=== PATIENT | female | born 1955 | race Caucasian/White ===

== ENCOUNTER → 2017-06-18 14:15 | Outpatient (CLI) | payer BC, SELFPAY ==
[2017-06-18 16:28] LABS: Free T3 3.1 pg/mL (2.18-3.98); T4 Free Direct 1.38 ng/dL (0.76-1.46); Thyroid Stim Hormone (TSH) 1.87 uIU/mL (0.358-3.74)
[2017-06-22 16:10] LABS: Thyroid Peroxidase AB 64 IU/mL (0-34)
== END ==
PROVIDERS: PCP Internal Medicine; Visit Provider Physician Assistant
DX: E06.9 Thyroiditis, unspecified (principal)
CPT/HCPCS: 36415; 84439; 84443; 84481; 86376; 86800

== ENCOUNTER → 2017-06-22 14:55 | Outpatient (CLI) | payer BC, SELFPAY ==
--- NOTE | 2017-06-22 14:57 | US_ITS ---
STUDY: THYROID ULTRASOUND REASON FOR EXAM: Female, 61 years old. THYROIDITIS FROM IMMUNE THERAPY FROM MELANOMA TECHNIQUE: Ultrasound evaluation of the thyroid was performed with real-time and static mohan-scale imaging. COMPARISON: 02.03.17 FINDINGS: RIGHT LOBE: The right lobe of the thyroid gland measures 5.1x2.6x2.4 cm. There is a heterogeneous echotexture. 3 x 3 x 3 mm solid nodule in the mid gland. The lesion is solid with regular margins and alexander nodular doppler flow. LEFT LOBE: absent. ISTHMUS: The isthmus measures 5 mm . Along the right side of the neck there is a lymph node measuring 14 X 6 X 4 MM. US/Thyroid IMPRESSION: Left thyroidectomy changes. Stable right 3mm nodule. Electronically Signed: Kenneth Gunter MD at 16:36 EDT , Service support ,
== END ==
PROVIDERS: Family Provider Internal Medicine; PCP Internal Medicine; Visit Provider Surgery
DX: E06.0 Acute thyroiditis (principal)
CPT/HCPCS: 76536

== ENCOUNTER 2017-10-30 18:24 | Emergency (ER) | payer BC, SELFPAY ==
[2017-10-30 18:25] VITALS: BP 122/53; PULSE 82; RESP 18; TEMP 36.6; O2SAT 97; BMI 23.8
--- NOTE | 2017-10-30 20:22 | EKG12_ITS ---
Test Reason : BACK Blood Pressure : / mmHG Vent. Rate : 073 BPM Atrial Rate : 073 BPM P-R Int : 150 ms QRS Dur : 076 ms QT Int : 388 ms P-R-T Axes : 024 -05 035 degrees QTc Int : 427 ms Normal sinus rhythm Normal ECG Confirmed by GYPSY DEL RIO ([id number]), fan mail editor USMAN URIAS ([id number]) on 11/03/2017 1:37:59 PM Referred By: MIA Confirmed By:GYPSY DEL RIO
--- NOTE | 2017-10-30 20:50 | RAD_ITS ---
STUDY: X-RAY CHEST REASON FOR EXAM: Female, 61 years old. Right apical chest pain. TECHNIQUE: 2 views COMPARISON: Prior chest radiograph of February 12, 2017 FINDINGS: The lungs are clear and expanded. There is no demonstrated pleural abnormality. Normal size heart. Normal mediastinum and sheri. Normal visualized pulmonary arteries. Normal visualized aortic arch and descending thoracic aorta. Normal visualized thoracic spine. Normal visualized ribs, clavicles, and shoulders. There is no demonstrated abnormality of the visualized soft tissue structures of the upper abdomen. RAD/Chest PA and Lateral IMPRESSION: Normal x-ray examination of the chest. Electronically Signed: Susy Farley MD at 21:32 EDT , Service support ,
--- NOTE | 2017-10-30 21:33 | ED.VISSUMM ---
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 Patient's been doing well. Today she was at work around 2:30 in the afternoon of some right upper shoulder discomfort that she thought was secondary to muscle ache. Said she rubbed it started feeling a little better than she got discomfort on her right lateral flank. She denies other symptoms. She has chronic intermittent diarrhea from her colostomy. She denies any fever or chills. She denies any shortness of breath. She denies any chest pain or cough. There is no pleuritic nature of the pain. She has had no hemoptysis. She has had no leg pain or swelling. She has never had a DVT or PE. She has no known cardiac history. She has had no recent travel, surgery or mobilization. No recent hospitalization. She denies any dysuria. No fever. No cough. Physical Examination: Well-appearing female. Vital signs are stable afebrile. Pulse ox 97% on room air no hypoxia. Heart rate 82. HEENT exam unremarkable. Neck nontender no lymphadenopathy. Very mild right trapezius tenderness to palpation. There is no ecchymosis or bruising. No redness or warmth. No signs of muscle spasm. Lungs clear all station bilaterally. Heart regular rhythm no murmur. Abdomen soft nontender. She is moving all 4 extremities. Calves are nontender without edema or cords. Neurologically she is awake and alert with no focal motor or sensory deficits. She has equal symmetrical radial and DP pulses. Back exam is nontender. There is no reproducible right flank tenderness or signs of trauma. Right upper quadrant is nontender. There is no Porras's or McBurney's point tenderness. Neurologic exam she is awake and alert moving all 4 extremities. Test Results: Chest x-ray 2 view read by myself shows normal cardiac silhouette and mediastinum. Lungs are unremarkable. No infiltrate. No pneumothorax. EKG is a sinus rhythm rate is 73 with no acute signs of HI or ischemia. Emergency Department Course and Treatment: Repeat exam she is doing well 2129. She has no new symptoms. Her vital signs are stable. Clinically I do not think she needs a larger workup. I do not think this is a PE. I do not think this is cardiac. This is consistent with a myalgia from her immunotherapy. I did discuss this with her oncologist Dr. Phelan from [place]. He will follow her up tomorrow. Treatment Plan: Tylenol and Motrin for pain. Return if feeling worse. Follow-up with her oncologist. Disposition: Discharge Impression: Myalgias secondary to immunotherapy History of mucosal melanoma This note was generated with [employer] dictation software. It may contain incorrect words, spelling, and punctuation that were not noted in review of the chart prior to signing ED Disposition - Plan for ED Patient: Chief Complaint: Back Referrals: Jj Holliday MD [Primary Care Provider] -
--- NOTE | 2017-10-30 21:37 | ED.DCSUM_ITS ---
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 Patient's been doing well. Today she was at work around 2:30 in the afternoon of some right upper shoulder discomfort that she thought was secondary to muscle ache. Said she rubbed it started feeling a little better than she got discomfort on her right lateral flank. She denies other symptoms. She has chronic intermittent diarrhea from her colostomy. She denies any fever or chills. She denies any shortness of breath. She denies any chest pain or cough. There is no pleuritic nature of the pain. She has had no hemoptysis. She has had no leg pain or swelling. She has never had a DVT or PE. She has no known cardiac history. She has had no recent travel, surgery or mobilization. No recent hospitalization. She denies any dysuria. No fever. No cough. Physical Examination: Well-appearing female. Vital signs are stable afebrile. Pulse ox 97% on room air no hypoxia. Heart rate 82. HEENT exam unremarkable. Neck nontender no lymphadenopathy. Very mild right trapezius tenderness to palpation. There is no ecchymosis or bruising. No redness or warmth. No signs of muscle spasm. Lungs clear all station bilaterally. Heart regular rhythm no murmur. Abdomen soft nontender. She is moving all 4 extremities. Calves are nontender without edema or cords. Neurologically she is awake and alert with no focal motor or sensory deficits. She has equal symmetrical radial and DP pulses. Back exam is nontender. There is no reproducible right flank tenderness or signs of trauma. Right upper quadrant is nontender. There is no Porras's or McBurney's point tenderness. Neurologic exam she is awake and alert moving all 4 extremities. Test Results: Chest x-ray 2 view read by myself shows normal cardiac silhouette and mediastinum. Lungs are unremarkable. No infiltrate. No pneumothorax. EKG is a sinus rhythm rate is 73 with no acute signs of SD or ischemia. Emergency Department Course and Treatment: Repeat exam she is doing well 2129. She has no new symptoms. Her vital signs are stable. Clinically I do not think she needs a larger workup. I do not think this is a PE. I do not think this is cardiac. This is consistent with a myalgia from her immunotherapy. I did discuss this with her oncologist Dr. Phelan from [place]. He will follow her up tomorrow. Treatment Plan: Tylenol and Motrin for pain. Return if feeling worse. Follow- up with her oncologist. Disposition: Discharge Impression: Myalgias secondary to immunotherapy History of mucosal melanoma This note was generated with [employer] dictation software. It may contain incorrect words, spelling, and punctuation that were not noted in review of the chart prior to signing ED Disposition - Plan for ED Patient: Chief Complaint: Back Referrals: Jj Holliday MD [Primary Care Provider] -
--- NOTE | 2017-10-30 21:37 | ED.DEP ---
ED Disposition - Plan for ED Patient: Disposition: Home or Assisted Living Chief Complaint: Back Instructions: ED Muscle Aching Additional Instructions: Follow-up with her oncologist tomorrow or Thursday. He said feel free to call him on the phone to let him know how you doing. Motrin and Tylenol for pain. If feeling significantly worse return to ER. Your chest x-ray and EKG tonight were normal.
[2017-10-30 21:44] VITALS: BP 113/70; PULSE 82; RESP 18; O2SAT 98
== END 2017-10-30 21:45 | disposition home or self-care (01) ==
PROVIDERS: Emergency Provider Emergency Medicine; Family Provider Internal Medicine; PCP Internal Medicine
DX: M79.1 Myalgia (principal); R19.7 Diarrhea, unspecified; Z85.820 Personal history of malignant melanoma of skin; Z93.3 Colostomy status
CPT/HCPCS: 71046; 93005; 99283; A4216

== ENCOUNTER 2017-11-01 06:21 | Emergency (ER) | payer BC, SELFPAY ==
[2017-11-01 06:22] VITALS: BP 155/128; PULSE 90; RESP 20; TEMP 36.7; O2SAT 97; BMI 24.7
--- NOTE | 2017-11-01 06:24 | ED.RN ---
rn called for ekg, pulled old ekg's for
--- NOTE | 2017-11-01 06:30 | EKG12_ITS ---
Test Reason : Blood Pressure : / mmHG Vent. Rate : 083 BPM Atrial Rate : 083 BPM P-R Int : 130 ms QRS Dur : 072 ms QT Int : 356 ms P-R-T Axes : 038 -03 038 degrees QTc Int : 418 ms Normal sinus rhythm Normal ECG Confirmed by TOMY DIAZ, JOSE DANIEL ([id number]), news videotape editor USMAN URIAS ([id number]) on 11/03/2017 1:05:08 PM Referred By: ARISTEO Confirmed By:JOSE DANIEL HUITRON MD
--- NOTE | 2017-11-01 06:31 | CT_ITS ---
STUDY: CTA CHEST REASON FOR EXAM: Female, 61 years old. Chest pain. Right rib pain on immunotherapy for rectal cancer. RADIATION DOSAGE (If Supplied By Facility): CTDIvol = ( 12.63 ) mGy, DLP = ( 376.71 ) mGycm TECHNIQUE: The examination was performed with the intravenous administration of 75 ml of Isovue 370 contrast material. Post-processing of the angiographic images was performed, with multiplanar reformation and 3D reconstruction. Individualized dose optimization techniques were used for this CT. COMPARISON: None. FINDINGS: Normal enhancement of the main pulmonary artery and right and left pulmonary arteries. Normal enhancement of the bilateral peripheral pulmonary arteries. There is no demonstrated pulmonary embolism. Normal thoracic aorta and visualized great vessels. There is no demonstrated aortic dissection. Normal heart and pericardium. There is no pericardial effusion. No significant mediastinal lymphadenopathy. There is a small bilateral hilar lymphadenopathy. Normal visualized trachea and bronchi. The lungs are well expanded. There are several small 1 to 10 mm noncalcified scattered lung nodules present bilaterally, consistent with metastatic disease. There is bibasilar atelectasis/infiltrates. There is bilateral pleural thickening with trace right pleural effusion. Normal chest wall structures. There are probably benign bilateral axillary lymph nodes. There are mild degenerative endplate changes of thoracic spine. Mildly increased thoracic kyphosis. Unremarkable visualized upper abdomen. CT/CTA Chest W/WO Contrast IMPRESSION: 1. Normal CTA chest examination, without a demonstrated pulmonary embolism or arterial dissection. 2. Several small scattered noncalcified lung nodules are present bilaterally, consistent with metastatic disease. 3. Bibasilar atelectasis versus infiltrates. 4. Posterior pleural thickening. Trace right pleural effusion. Electronically Signed: Savana Villela MD at 7:54 EDT Tel , Service support ,
[2017-11-01] MEDS: HYDROmorphone 0.5 MG/0.5 ML SYRINGE IV ×2 (06:35→09:44)
[2017-11-01] MEDS: Ondansetron 4 MG/2 ML Vial IV (06:36)
[2017-11-01 06:40] LABS: Absolute Lymphocyte Count 2.37 X10^3/ul (0.83-4.51); Absolute Neutrophil Count 3.6 X10^3/uL (2.0-7.7); Basophil# 0.05 X10^3/uL; Basophil% 0.7 % (0-1); Eosinophil# 0.59 X10^3/uL; Eosinophils% 8.1 % (0-5); Hematocrit 36.4 % (37-47); Hemoglobin 12.1 g/dl (12.0-15.0); Lymphocyte # 2.37 X10^3/ul (4.0); Lymphocyte % 32.4 % (19-41); Mean Corp Hgb Conc 33.2 g/gl (32-36); Mean Corpuscular Hgb 30.5 pg (27.0-32.0); Mean Corpuscular Volume 91.7 fL (81-99); Monocyte# 0.73 X10^3/uL; Neutrophil # 3.56 X10^3/uL (2.7-7.7); Neutrophil % 48.7 % (47-70); Platelet Count 245 K/mm3 (150-450); RBC Distribution Width SD 42.7 fl (35.1-43.9); Red Blood Count 3.97 M/mm3 (4.2-5.4); White Blood Count 7.3 K/mm3 (4.4-11.0)
--- NOTE | 2017-11-01 06:41 | ED.DCSUM_ITS ---
- ER Visit Summary Date of Service: 11/01/17 Chief Complaint: [Right chest pain] History of Present Illness: The patient is a 61 F [patient presents the emergency department with severe right-sided chest pain. It started on Thursday she was seen in the emergency department she had pain that was radiating down her neck into her shoulder and then migrated to her right flank. She was fairly comfortable at that time however the pain has gotten worse and this morning was excruciating. She has severe pain with deep inspiration it helps slightly when she puts pressure on that area it is on her right sixth rib. No fevers chills or shortness of breath. She does have a history of mucosal melanoma status post ostomy. She is on immunotherapy currently. She has not had any additional surgery and takes levothyroxine] Physical Examination: [] Blood pressure 155/128 heart rate 90 respiratory rate 20 pulse ox 97% WN WD moderate distress due to pain PERRL EOMI MMM NECK supple and nontender, no masses RRR no murmur rub or gallop, no peripheral edema, symmetric radial pulses CTAB no respiratory distress there is no reproducible tenderness however patient is guarding her anterior right lower chest ABDOMEN is soft and nontender, normal bowel sounds, no distension, no rebound or guarding SKIN is warm and dry no rashes Alert and Oriented x3, CN II-XII in tact, no motor or sensory deficits, gait normal No lymphadenopathy Test Results: [EKG is sinus at a rate of 83 with no acute ischemic changes screening labs were unremarkable. CTA of the chest is pending. I did speak with the patient she was feeling better after Dilaudid in the emergency department. Her oncologist did request a call back. Patient was signed out to Dr. Vargas pending CTA results and formal disposition.] Emergency Department Course and Treatment: [] Treatment Plan: [] Disposition: [Pending consultation and results] Impression: [Right chest pain] This note was generated with [employer] dictation software. It may contain incorrect words, spelling, and punctuation that were not noted in review of the chart prior to signing ED Disposition - Plan for ED Patient: Disposition: Home or Assisted Living Chief Complaint: Chest Pain Instructions: ED Chest Pain NonCardiac Prescriptions: Oxycodone [Oxyir] 5 mg PO Q6H PRN PRN 3 Days #10 tab PRN Reason: Pain Prednisone 20 mg PO BID #3 tab Additional Instructions: Please keep your appointment with Dr. Phelan. Please return if worsening or concerns.
[2017-11-01 06:42] LABS: POSITIVE COUNT NO; POSITIVE DIFFERENTIAL NO; POSITIVE MORPHOLOGY NO
--- NOTE | 2017-11-01 06:55 | NURSING ---
NO LW OR POA
[2017-11-01 06:57] LABS: ALB/GLOB Ratio 0.9 RATIO (0.9-2.4); AST(SGOT) 17 U/L (15-37); Alanine Aminotransfer ALT/SGPT 20 U/L (13-56); Albumin, Serum 3.6 g/dL (3.2-5.0); Alkaline Phosphatase 79 U/L (45-117); Anion Gap 10 (5-15); BUN 12 mg/dL (7-18); BUN/Creat Ratio 16.3 RATIO (10-20); Calcium,Total 8.8 mg/dL (8.5-10.1); Chloride 106 mmol/L (98-107); Creatinine, Serum 0.74 mg/dL (0.55-1.02); EST Glomerular Filtration Rate 85 mL/min (>60); Est Glom Filt Rate - Afr Amer 103 mL/min (>60); Estimated Creatinine Clearance 71.84 ml/min; Globulin 4.1 g/dL (2.2-4.2); Glucose 90 mg/dL (74-106); Lipase 89 U/L (73-393); Potassium 3.8 mmol/L (3.5-5.1); Protein, Total 7.7 g/dL (6.4-8.2); Sodium Level 143 mmol/L (136-145)
--- NOTE | 2017-11-01 08:05 | CT_ITS ---
STUDY: CT ABDOMEN AND PELVIS WITHOUT CONTRAST REASON FOR EXAM: Female, 61 years old. Right rib and flank pain. History of rectal cancer. RADIATION DOSAGE (If Supplied By Facility): CTDIvol = ( 6.16 ) mGy, DLP = ( 343.72 ) mGycm TECHNIQUE: Transaxial images were obtained from the dome of the diaphragm to the symphysis pubis without oral contrast, and without intravenous contrast. Sagittal and coronal images were reconstructed. Individualized dose optimization techniques were used for this CT. COMPARISON: PET/CT scan: 01/26/2017 FINDINGS: The visualized lung bases shows linear areas of atelectasis/infiltrates with up to 17 mm and smaller nodular densities. Trace right pleural effusion. The visualized portions of the heart are within normal limits. There is decreased attenuation of the liver consistent with mild steatosis. Normal gallbladder and extrahepatic biliary system. Normal spleen. Normal pancreas. There is bulbous configuration of the pancreas at the body and tail junction. Normal bilateral adrenal glands. Normal right kidney. Normal left kidney. Duplex left renal collecting system. Normal visualized stomach. Normal small intestine. Patient might have undergone abdominal perineal resection(APR) for rectal cancer. There is proctocolectomy with a colostomy opening in the left lower quadrant. Moderate amount of retained fecal debris is seen in the ascending, transverse and residual portion of the descending colon. There is non-visualization of the appendix. There is moderate atherosclerotic calcification of the abdominal aorta and origin of the left renal artery, without a demonstrated aneurysm. Normal inferior vena cava. Normal retroperitoneum. Multiple small centimeter/subcentimeter lymph nodes are seen mostly in the root of the small bowel mesentery. Normal urinary bladder. There is absence of the uterus consistent with a prior hysterectomy. There is posteriorly in the left adnexal region a 6.9 x 4.2 cm conglomerated pelvic lymphadenopathy demonstrated. No lytic or blastic bony destructive abnormality demonstrated. There is lumbosacral mild/moderate degenerative facet arthrosis. CT/Abdomen/Pelvis without Cont IMPRESSION: 1. Bibasilar atelectasis/infiltrates. Multiple bilateral pulmonary nodules. Trace right pleural effusion. 2. Possible prior proctocolectomy with a colostomy in the left lower abdominal quadrant. Moderately increased colonic stool volume. 3. A 6.9 x 4.2 cm left pelvic lymphadenopathy, likely metastatic. Electronically Signed: Savana Villela MD at 9:10 EDT Tel , Service support ,
[2017-11-01 08:21] VITALS: BP 109/58; PULSE 73; RESP 18; O2SAT 100
--- NOTE | 2017-11-01 09:33 | ED.DCSUM_ITS ---
- ER Visit Summary Date of Service: 11/01/17 Chief Complaint: Chest and back pain History of Present Illness: The patient is a 61 F who was initially assessed by Dr. Devine. Patient was seen in the emergency department on 10/30 and again early this morning. Currently undergoing immunotherapy for metastatic mucosal melanoma. She sees Dr. Phelan in [place] ([phone]). Patient notes the pain is severe and sudden onset. She notes that there is a pleuritic component. Physical Examination: Afebrile vital signs are stable Gen: Well-nourished well-developed patient appears in pain Head: Normocephalic atraumatic Eyes: Perrl EOMI ENT: TMs clear no rhinorrhea moist mucous membranes Neck: Supple no lymphadenopathy no JVD nontender CVS: Regular rate rhythm no murmurs normal S1-S2 Respiratory: No distress clear to auscultation bilaterally chest nontender Abdomen: Soft nontender nondistended normal bowel sounds no masses Back: Mild tenderness in the right scapular region Extremity: Nontender no edema Skin: Normal color no rash Neuro: alert orientated ?3 CN II-XII intact Test Results: EKG shows a normal sinus rhythm at a rate of 83 that is unchanged from prior. CBC CMP lipase within normal limits. Troponin less than 0.015. Chest x-ray negative. CT Sandy of the chest was negative for PE. CT the abdomen pelvis does not demonstrate any acute findings. Emergency Department Course and Treatment: Patient received Dilaudid with improvement of her pain. I personally spoke with Dr. Phelan who recommends we start the patient on prednisone as he believes it this is most likely reaction to the immune therapy given the above negative findings. I spoke with the patient and her family at the bedside. They do not have any further questions and are comfortable with this plan. She has a few OxyContin tablets left over from her surgery in the fall. To ensure she has adequate pain control I will write a prescription for a few oxycodone. The patient has a follow-up appointment this (in 4 days) Impression: 1. Chest and back pain secondary to immune therapy This note was generated with [employer] dictation software. It may contain incorrect words, spelling, and punctuation that were not noted in review of the chart prior to signing ED Disposition - Plan for ED Patient: Disposition: Home or Assisted Living Chief Complaint: Chest Pain Instructions: ED Chest Pain NonCardiac Prescriptions: Oxycodone [Oxyir] 5 mg PO Q6H PRN PRN 3 Days #10 tab PRN Reason: Pain Prednisone 20 mg PO BID #3 tab Additional Instructions: Please keep your appointment with Dr. Phelan. Please return if worsening or concerns.
[2017-11-01] MEDS: predniSONE 20 MG Tablet PO (09:44)
== END 2017-11-01 09:54 | disposition home or self-care (01) ==
PROVIDERS: Emergency Medicine; Emergency Provider Emergency Medicine; Family Provider Internal Medicine; PCP Internal Medicine
DX: R07.9 Chest pain, unspecified (principal); M54.9 Dorsalgia, unspecified; Z85.820 Personal history of malignant melanoma of skin
CPT/HCPCS: 71275; 74176; 80053; 83690; 84484; 85025; 93005; 96374; 96375; 96376; 99285; J7040; Q9967; A4216; J2405

== ENCOUNTER 2017-11-05 06:24 | Emergency (ER) | payer BC, SELFPAY ==
[2017-11-05 06:25] VITALS: BP 101/69; PULSE 96; RESP 17; TEMP 36.8; O2SAT 100; BMI 24.0
--- NOTE | 2017-11-05 06:43 | NURSING ---
NO LW OR POA
[2017-11-05 07:07] LABS: Absolute Lymphocyte Count 2.39 X10^3/ul (0.83-4.51); Absolute Neutrophil Count 6.8 X10^3/uL (2.0-7.7); Basophil# 0.04 X10^3/uL; Basophil% 0.4 % (0-1); Eosinophil# 0.45 X10^3/uL; Eosinophils% 4.2 % (0-5); Hematocrit 37.5 % (37-47); Hemoglobin 12.7 g/dl (12.0-15.0); Lymphocyte # 2.39 X10^3/ul (4.0); Lymphocyte % 22.3 % (19-41); Mean Corp Hgb Conc 33.9 g/gl (32-36); Mean Corpuscular Hgb 30.2 pg (27.0-32.0); Mean Corpuscular Volume 89.1 fL (81-99); Mean Platelet Vol. 9.1 fl (6.2-12.0); Monocyte# 1.07 X10^3/uL; Neutrophil # 6.76 X10^3/uL (2.7-7.7); Neutrophil % 62.8 % (47-70); Platelet Count 292 K/mm3 (150-450); RBC Distribution Width CV 12.9 % (11.6-14.6); RBC Distribution Width SD 41.5 fl (35.1-43.9); Red Blood Count 4.21 M/mm3 (4.2-5.4); White Blood Count 10.7 K/mm3 (4.4-11.0)
[2017-11-05 07:08] LABS: POSITIVE COUNT NO; POSITIVE DIFFERENTIAL NO; POSITIVE MORPHOLOGY NO
[2017-11-05 07:13] LABS: Anion Gap 10 (5-15); BUN 13 mg/dL (7-18); BUN/Creat Ratio 16.9 RATIO (10-20); Chloride 102 mmol/L (98-107); Creatinine, Serum 0.77 mg/dL (0.55-1.02); EST Glomerular Filtration Rate 81 mL/min (>60); Est Glom Filt Rate - Afr Amer 98 mL/min (>60); Estimated Creatinine Clearance 69.04 ml/min; Glucose 102 mg/dL (74-106); Potassium 3.4 mmol/L (3.5-5.1); Sodium Level 137 mmol/L (136-145)
--- NOTE | 2017-11-05 07:19 | EKG12_ITS ---
Test Reason : SYNCOPE Blood Pressure : / mmHG Vent. Rate : 091 BPM Atrial Rate : 091 BPM P-R Int : 150 ms QRS Dur : 070 ms QT Int : 362 ms P-R-T Axes : 036 -15 035 degrees QTc Int : 445 ms Normal sinus rhythm Leftward axis Low voltage QRS (LIMB LEADS) Confirmed by TOMY DIAZ, JOSE DANIEL ([id number]), make up editor USMAN URIAS ([id number]) on 11/10/2017 2:41:41 PM Referred By: DOMITILA Confirmed By:JOSE DANIEL HUITRON MD
--- NOTE | 2017-11-05 07:19 | RAD_ITS ---
STUDY: X-RAY CHEST REASON FOR EXAM: Female, 61 years old. Syncope TECHNIQUE: Single AP portable view of the chest. COMPARISON: 05/02/2017 FINDINGS: EKG leads overlie the chest The lungs are clear and expanded. There is no demonstrated pleural abnormality. Normal size heart. Normal mediastinum and sheri. Normal visualized pulmonary arteries. Normal visualized aortic arch and descending thoracic aorta. Normal visualized thoracic spine. Normal visualized ribs, clavicles, and shoulders. There is no demonstrated abnormality of the visualized soft tissue structures of the upper abdomen. RAD/Chest 1 View (Portable) IMPRESSION: Normal x-ray examination of the chest. Electronically Signed: Jorge Palm MD at 7:50 EDT , Service support ,
[2017-11-05] MEDS: Ketorolac 30 MG/ML Syringe IV (07:34)
[2017-11-05] MEDS: 0.9% Normal Saline 1,000 ML 1000 ML IV (07:34)
[2017-11-05] MEDS: Ondansetron 4 MG/2 ML Vial IV (07:34)
--- NOTE | 2017-11-05 07:59 | NURSING ---
CALLED [facility]. [phone] RAMESH TO CALL DR HANSON'S CELL [phone]
--- NOTE | 2017-11-05 08:11 | NURSING ---
CALLED [facility], TALKED TO PAT. ABOUT TRANSFER
--- NOTE | 2017-11-05 08:16 | NURSING ---
DR AGUILAR FOR DR RAMESH
--- NOTE | 2017-11-05 08:22 | ED.VISSUMM ---
- ER Visit Summary Date of Service: 11/05/17 Chief Complaint: Syncope History of Present Illness: The patient is a 61 F who presents with syncope. She has a history of metastatic melanoma with a rectum resection and colostomy. This is her third ER visit in about 1 week. She was initially seen for back pain which was attributed to a musculoskeletal etiology. She returned with back and flank pain and underwent workup including laboratory studies CTA of the chest CT the abdomen which was notable for a pelvic mass which was known but no pulmonary embolism. The ER physician spoke to the patient's oncologist who thought that this was likely related to her immunotherapy and recommended starting prednisone. Last night the patient began to feel dizzy. This morning she was sitting on a stool in the bathroom when she became unresponsive and fell to the side. The caught her. He reports that he was unresponsive for 30 seconds. She then began to have vomiting. She also reports chills and ongoing lower back pain. Physical Examination: Afebrile vitals are stable Moist mucous membranes Heart regular rate and rhythm Lungs are clear Abdomen soft colostomy noted no tenderness Bilateral paraspinal lumbar and flank CVA tenderness no midline tenderness Test Results: EKG shows sinus rhythm at a rate of 91. CBC BMP unremarkable. Troponin negative. Chest x-ray is normal. Emergency Department Course and Treatment: Patient was treated here with IV fluids Toradol and Zofran. Given that this is a third ER visit she continues to have progressive worsening symptoms I feel hospitalization is warranted. I spoke to her oncologist who was in agreement and requested transfer to [facility]. I spoke to the hospitalist that facility who did accept the patient. Treatment Plan: [] Disposition: Transfer Impression: Syncope This note was generated with [employer] dictation software. It may contain incorrect words, spelling, and punctuation that were not noted in review of the chart prior to signing ED Disposition - Plan for ED Patient: Chief Complaint: Syncope Referrals: Jj Holliday MD [Primary Care Provider] -
[2017-11-05] MEDS: Morphine 4 MG/ML Syringe IV (08:26)
--- NOTE | 2017-11-05 08:27 | NURSING ---
[facility] [phone]
[2017-11-05 08:32] VITALS: BP 118/62; PULSE 82; RESP 21; O2SAT 98
--- NOTE | 2017-11-05 08:35 | NURSING ---
CALLED [facility] FOR TRANSPORT. ETA IS 10 TO 15 MIN
[2017-11-05 09:05] VITALS: BP 105/61; PULSE 84; RESP 18; O2SAT 97
== END 2017-11-05 09:10 | disposition short-term general hospital (02) ==
LOC: ED 07:23
PROVIDERS: Emergency Provider Emergency Medicine; Family Provider Internal Medicine; PCP Internal Medicine
DX: R55 Syncope and collapse (principal); M54.5 Low back pain; E03.9 Hypothyroidism, unspecified; Z85.820 Personal history of malignant melanoma of skin; Z93.3 Colostomy status; Z79.899 Other long term (current) drug therapy
CPT/HCPCS: 71045; 80048; 84484; 85025; 93005; 96374; 96375; 99285; J7030; J2405

== ENCOUNTER → 2017-11-13 16:27 | Outpatient (CLI) | payer BC, SELFPAY ==
--- NOTE | 2017-11-13 16:31 | CT_ITS ---
STUDY: CT PELVIS WITHOUT CONTRAST REASON FOR EXAM: Female, 61 years old. RADIATION TREATMENT PLANNING SCAN FOR RECTAL CANCER. PT HAS COLOSTOMY RADIATION DOSAGE (If Supplied By Facility): CTDIvol = ( 23.92 ) mGy, DLP = ( 838.33 ) mGycm TECHNIQUE: Transaxial imaging of the pelvis was performed without oral contrast, and without intravenous administration of contrast material. Individualized dose optimization techniques were used for this CT. COMPARISON: CT Abdomen/Pelvis Nov 01 2017 8:12am FINDINGS: Normal urinary bladder. The appendix is not visualized. There are no secondary signs to suggest appendicitis. There is a left lower quadrant ostomy noted. Normal visualized small intestine. Normal visualized colon. There is no pelvic fluid. Stable left pelvic adenopathy. There is a heterogeneous left pelvic sidewall mass measuring 38 x 39 mm. This is likely a metastatic lymph node. This appears stable. This extends into the issue rectal fossa. Soft tissue mass in the rectal region likely representing a rectal stump. Normal visualized pelvic arteries. Normal abdominal wall. Normal osseous structures. CT/CT Pelvis w/o Cont/Therapy IMPRESSION: Stable left pelvic sidewall adenopathy. Relatively stable mass in the left pelvic sidewall concerning for metastatic focus. Electronically Signed: Kenneth Gunter MD at 22:41 EDT , Service support ,
== END ==
PROVIDERS: Family Provider Internal Medicine; PCP Internal Medicine; Visit Provider Radiology Radiation Oncology
DX: C20 Malignant neoplasm of rectum (principal)
CPT/HCPCS: 51600; 72192

== ENCOUNTER 2017-11-17 14:06 | Inpatient (IN) | payer BC, SELFPAY ==
[2017-11-17] VITALS (7 sets, daily range): BP systolic 91–115; BP diastolic 48–73; PULSE 84–103; RESP 12–24; TEMP 36.5–37.7; O2SAT 99–100; BMI 24.1; BMI 24.2
[2017-11-17 14:39] LABS: Absolute Lymphocyte Count 1.81 X10^3/ul (0.83-4.51); Absolute Neutrophil Count 4.9 X10^3/uL (2.0-7.7); Basophil# 0.04 X10^3/uL; Basophil% 0.5 % (0-1); Eosinophil# 0.51 X10^3/uL; Eosinophils% 6.1 % (0-5); Hemoglobin 11.2 g/dl (12.0-15.0); Lymphocyte # 1.81 X10^3/ul (4.0); Lymphocyte % 21.7 % (19-41); Mean Corp Hgb Conc 33.9 g/gl (32-36); Mean Corpuscular Hgb 29.5 pg (27.0-32.0); Mean Corpuscular Volume 86.8 fL (81-99); Mean Platelet Vol. 8.9 fl (6.2-12.0); Monocyte# 1.02 X10^3/uL; Monocyte% 12.2 % (0-10); Neutrophil # 4.93 X10^3/uL (2.7-7.7); Neutrophil % 59.3 % (47-70); Platelet Count 270 K/mm3 (150-450); RBC Distribution Width CV 12.5 % (11.6-14.6); RBC Distribution Width SD 40.2 fl (35.1-43.9); White Blood Count 8.3 K/mm3 (4.4-11.0)
[2017-11-17 14:40] LABS: POSITIVE COUNT NO; POSITIVE DIFFERENTIAL NO; POSITIVE MORPHOLOGY NO
[2017-11-17 14:51] LABS: Anion Gap 8 (5-15); BUN 13 mg/dL (7-18); BUN/Creat Ratio 20.1 RATIO (10-20); Calcium,Total 8.8 mg/dL (8.5-10.1); Chloride 88 mmol/L (98-107); Creatinine, Serum 0.65 mg/dL (0.55-1.02); EST Glomerular Filtration Rate 99 mL/min (>60); Est Glom Filt Rate - Afr Amer 119 mL/min (>60); Estimated Creatinine Clearance 81.79 ml/min; Glucose 93 mg/dL (74-106); Potassium 3.5 mmol/L (3.5-5.1); Sodium Level 123 mmol/L (136-145)
[2017-11-17] MEDS: fentaNYL 100 MCG/2 ML Ampul 25 MCG IV (15:17)
[2017-11-17] MEDS: 0.9% Normal Saline 1,000 ML 1000 ML IV (15:17)
[2017-11-17] MEDS: Ondansetron 4 MG/2 ML Vial IV ×2 (15:17→19:45)
[2017-11-17] MEDS: 0.9% Normal Saline 1,000 ML 999 ML IV (16:10)
[2017-11-17 16:28] LABS: Bacteria 0 SEEN /hpf (None Seen); Mucous, Urine 0 SEEN /hpf (<or=2+); Red Blood Cells-Urine 0 SEEN /hpf (0-5); Squamous Epithelial Cells - UA 0 SEEN /hpf (5-10); White Blood Cells 0 SEEN /hpf (0-5)
[2017-11-17 16:30] LABS: Color, Urine Yellow (Yellow); Glucose, Dipstick Normal (Normal); Ketone-Dipstick 50 mg/dl (Negative); Leukocyte Esterase-Dipstick Negative /ul (Negative); Nitrite-Dipstick Negative (Negative); Occult Blood-Urine Negative /ul (Negative); Protein-Dipstick Negative (Negative); Specific Gravity, Urine 1.015 (1.002-1.030); Urine Bilirubin Dipstick Negative (Negative); Urine Clarity Clear (Clear); Urine Urobilinogen 1 mg/dl (Normal)
[2017-11-17] MEDS: fentaNYL 100 MCG/2 ML Ampul 50 MCG IV (17:02)
--- NOTE | 2017-11-17 17:33 | ED.VISSUMM ---
- ER Visit Summary Date of Service: 11/17/17 Chief Complaint: Trouble urinating History of Present Illness: The patient is a 61 F with a history of rectal cancer which was treated remotely and has recurred. She was sent from her radiation oncologist office. She has had trouble urinating over the past 5 days. She never had this before. No history of kidney stones. No fevers or infectious symptoms. She has chronic back pain and pain into her legs from her cancer. Physical Examination: Afebrile and vital signs unremarkable. Initial blood pressure was 91/59, but repeat blood pressure was 115/55. She appears uncomfortable. Heart regular. Lungs clear. Abdomen soft and nontender. Colostomy present. Skin appears normal. Test Results: Urinalysis unremarkable. Hemoglobin 11.2. Sodium 123, glucose 93. Emergency Department Course and Treatment: K[place]ffman was placed on arrival. This was performed without difficulty. Patient drained a significant amount of urine which appeared unremarkable. Her workup was also fairly unremarkable except for the sodium of 123. Patient required multiple doses of fentanyl and Zofran for pain and nausea. Patient requested admission for symptom control. Patient also has this hyponatremia which appears to be new. She was discussed with the hospitalist who will admit for further care. Treatment Plan: As above Disposition: Admission Impression: 1. Back pain 2. Urine retention This note was generated with [employer] dictation software. It may contain incorrect words, spelling, and punctuation that were not noted in review of the chart prior to signing ED Disposition - Plan for ED Patient: Chief Complaint: General Illness Referrals: Jj Holliday MD [Primary Care Provider] -
--- NOTE | 2017-11-17 18:05 | PCM.HP.STD ---
Problem List (1) Hyponatremia Status: Acute (2) Urinary retention Status: Acute History of Present Illness Date of Admission: 11/17/17 Chief Complaint: urinary retention The patient is a 61 year old F has been having urinary retention since November 13. On November 11 patient was started on morphine for a malignant melanoma of her pelvis. On the patient started having issues with urinary retention and urinating only a few drops at the time. Patient underwent her first dose of 10 radiation treatments but was just having significant abdominal pain. Patient had a catheter placed and had a lot of urine removed, unclear quantity. Patient did feel better from that standpoint but still does have a lot of left buttock pain related with her mass. Patient stated that the morphine she was taking helped her pain but did make her nauseated. Patient did receive fentanyl in the emergency room did not make her nauseated. Patient has a history of metastatic melanoma and was recently diagnosed with a new pelvic mass in September that has grown very short period of time. Patient had a CAT scan of her pelvis performed on the that showed the mass was 38 x 39 mm. Extends into the rectal fossa. In the midst of the patient's workup today patient was noted to be hyponatremic with a sodium of 123. Patient's previous sodiums were 137 back on November 05. No evidence of hyponatremia in the past but only dating January 22, 2017. Patient being admitted for further treatment of her hyponatremia. [] Past Medical History Medical History: Medical History (Last Reviewed 11/17/17 @ 18:09 by Tashi Ellsworth DO) Regional lymph node metastasis present (Acute) C77.9 Primary malignant melanoma of gastrointestinal tract (Acute) C26.9 Allergies No Known Allergies Allergy (Verified 11/17/17 15:18) Home Medications: Ambulatory Orders Medication Instructions Recorded Levothyroxine [Synthroid] 100 mg PO DAILY 10/30/17 Glutamine [Endari] 4 t PO UD 11/17/17 Lactulose [Lactulose] 1 dose PO BID 11/17/17 Morphine [Morphine IR] 15 mg PO BID 11/17/17 Senna [Senokot] 1 tablet PO BID 11/17/17 morphine solution (IR) [Roxanol 10 mg PO Q4H PRN PRN 11/17/17 (IR oral solution)] Surgical History: Surgical History (Last Updated 11/17/17 @ 18:09 by Tashi Ellsworth DO) H/O colostomy diverting H/O thyroidectomy E89.0 History of breast surgery Z98.890 Lives: Spouse/ Significant Other Smoking Status: Never smoker Tobacco Use: Non-smoker Alcohol: None Drugs: None - *Family History Maternal Family History: Family History (Last Reviewed 11/17/17 @ 18:09 by Tashi Ellsworth DO) Father Diabetes Heart disease Colon cancer Prostate cancer Skin cancer Mother Heart disease Bone cancer Review of Systems Constitutional: Denies: Chills, Fever, Weight Change Eyes: Denies: Blurred vision, Double vision HEENT: Denies: Head Aches, Sinus Congestion, Sinus Drainage Cardiovascular: Denies: Chest Pain, Palpitations Respiratory: Denies: Cough, Shortness of breath at rest, Sputum production Gastrointestinal: Reports: Abdominal Pain. Denies: Diarrhea, Nausea Genitourinary: Reports: Dysuria, Retention. Denies: - Musculoskeletal: Denies: Joint Pain, Joint Tenderness Skin: Denies: Rash, Wounds Neurological: Reports: - - Patient does have pain going down her left leg.. Denies: Blurred vision, Double vision, Focal weakness, Numbness, Tingling Psychiatric: Denies: Anxiety, Depression Hematologic/ Lymphatic: Denies: Easy Bruising, Easy Bleeding, Hx of blood clot Comment: All review of systems are negative except as mentioned in the history of present illness and the other review of systems. VTE Information - Inpt Only VTE Present on Admission: No VTE Mechan Device Prophylaxis: None VTE Pharm Prophylaxis ordered?: Yes Patient Problems: Active and Suspected Problems (Last Reviewed 06/24/17 @ 07:39 by Sommer Garcia) Hyponatremia (Acute) Urinary retention (Acute) - Physical Exam General: Alert, - - Uncomfortable. Afebrile. HEENT: Atraumatic, Normocephalic Oral: Moist Mucosa, No Gingival or Mucosal Lesions/ Ulcerations Neck: No Nodes, Thyroid Normal Size and Texture Lungs: Clear to auscultation, Normal air movement, No rhonchi, No wheeze Cardiovascular: Regular rate, Regular Rhythm, Normal S1, Normal S2, No murmurs Abdomen: Bowel Sounds Present, Soft, Non Tender, Non-Distended, No Hepato-splenomegaly, - - Colostomy in the right lower quadrant Extremities: No edema, No Calf Tenderness Skin: No rashes, No breakdown Musculoskeletal: No Tenderness to Palpation of Joints or Extremities, No Muscle Wasting Neurological: Neuro grossly intact, Motor Exam 5/5 strength throughout, Sensory exam intact to light touch and pain Psych/Mental Status: Normal Affect, Appropriate Vital Signs Temp Pulse Resp BP Pulse Ox 36.5 C L 88 13 111/73 100 11/17/17 14:08 11/17/17 18:02 11/17/17 18:02 11/17/17 17:34 11/17/17 18:02 Oxygen Delivery Method Room Air Weight: 65.771 kg Body Mass Index (BMI) 24.1 Laboratory Tests Past 24 Hrs 11/17/17 11/17/17 11/17/17 14:30 14:30 14:30 WBC 8.3 RBC 3.80 L Hgb 11.2 L Hct 33.0 L MCV 86.8 MCH 29.5 MCHC 33.9 RDW 12.5 RDW Differential 40.2 Plt Count 270 MPV 8.9 Immature Gran % (Auto) 0.200 Neut % (Auto) 59.3 Lymph % (Auto) 21.7 [place] % (Auto) 12.2 H Eos % (Auto) 6.1 H Baso % (Auto) 0.5 Absolute Neuts (auto) 4.9 Absolute Lymphs (auto) 1.81 Total Counted Not Reportable Sodium 123 L Potassium 3.5 Chloride 88 L Carbon Dioxide 27.0 Anion Gap 8 BUN 13 Creatinine 0.65 Estim Creat Clear Calc 81.79 Est GFR (MDRD) Af Amer 119 Est GFR (MDRD) Non-Af 99 BUN/Creatinine Ratio 20.1 H Glucose 93 Lactic Acid Cancelled Calcium 8.8 Urine Color Urine Clarity Urine pH Ur Specific [place] Urine Protein Urine Glucose (UA) Urine Ketones Urine Occult Blood Urine Nitrite Urine Bilirubin Urine Urobilinogen Ur Leukocyte Esterase Urine RBC Urine WBC Ur Squamous Epith Cells Urine Bacteria Urine Mucus 11/17/17 14:52 WBC RBC Hgb Hct MCV MCH MCHC RDW RDW Differential Plt Count MPV Immature Gran % (Auto) Neut % (Auto) Lymph % (Auto) [place] % (Auto) Eos % (Auto) Baso % (Auto) Absolute Neuts (auto) Absolute Lymphs (auto) Total Counted Sodium Potassium Chloride Carbon Dioxide Anion Gap BUN Creatinine Estim Creat Clear Calc Est GFR (MDRD) Af Amer Est GFR (MDRD) Non-Af BUN/Creatinine Ratio Glucose Lactic Acid Calcium Urine Color Yellow Urine Clarity Clear Urine pH 8.0 Ur Specific [place] 1.015 Urine Protein Negative Urine Glucose (UA) Normal Urine Ketones 50 H Urine Occult Blood Negative Urine Nitrite Negative Urine Bilirubin Negative Urine Urobilinogen 1 H Ur Leukocyte Esterase Negative Urine RBC 0 SEEN Urine WBC 0 SEEN Ur Squamous Epith Cells 0 SEEN Urine Bacteria 0 SEEN Urine Mucus 0 SEEN CAT scan on November 13 showed a heterogenous left pelvic sidewall mass measuring 38 by 39 mm. Assessment/Plan All Active Problems (Last Reviewed 06/24/17 @ 07:39 by Sommer Garcia) Hyponatremia (Acute) Urinary retention (Acute) Regional lymph node metastasis present (Acute) Primary malignant melanoma of gastrointestinal tract (Acute) 1. Hyponatremia I suspect it is due to volume depletion I do not suspect SIADH or another process at this time Plan right now is to give her IV fluids and reevaluate If upon reevaluation, that her sodium is lower, then would recommend doing additional urine studies with urine sodium, urine osmolality and serum osmolality. I have ordered a TSH as well. Consider a Cortrosyn stim test if sodium continues to remain low I do not feel that the patient requires hypertonic saline at this time 2. Urinary retention Patient had no issues until starting morphine. This may be related with the pain medications, however with her masses certainly could be another issue. Patient's symptoms began before her radiation therapy today 3. Malignant melanoma Patient has completed immunotherapy. Patient is seeing Dr. Phelan in [place] Currently seeing Dr. Nash, of radiation oncology 4. DVT prophylaxis with Lovenox Code Visit Inpatient E&M: 68227 Init Hosp L3
--- NOTE | 2017-11-17 18:09 | HP.PCM_ITS ---
Problem List (1) Hyponatremia Status: Acute (2) Urinary retention Status: Acute History of Present Illness Date of Admission: 11/17/17 Chief Complaint: urinary retention The patient is a 61 year old F has been having urinary retention since November 13. On November 11 patient was started on morphine for a malignant melanoma of her pelvis. On the patient started having issues with urinary retention and urinating only a few drops at the time. Patient underwent her first dose of 10 radiation treatments but was just having significant abdominal pain. Patient had a catheter placed and had a lot of urine removed, unclear quantity. Patient did feel better from that standpoint but still does have a lot of left buttock pain related with her mass. Patient stated that the morphine she was taking helped her pain but did make her nauseated. Patient did receive fentanyl in the emergency room did not make her nauseated. Patient has a history of metastatic melanoma and was recently diagnosed with a new pelvic mass in September that has grown very short period of time. Patient had a CAT scan of her pelvis performed on the that showed the mass was 38 x 39 mm. Extends into the rectal fossa. In the midst of the patient's workup today patient was noted to be hyponatremic with a sodium of 123. Patient's previous sodiums were 137 back on November 05. No evidence of hyponatremia in the past but only dating January 22, 2017. Patient being admitted for further treatment of her hyponatremia. [] Past Medical History Medical History: Medical History (Last Reviewed 11/17/17 @ 18:09 by Tashi Ellsworth DO) Regional lymph node metastasis present (Acute) C77.9 Primary malignant melanoma of gastrointestinal tract (Acute) C26.9 Allergies No Known Allergies Allergy (Verified 11/17/17 15:18) Home Medications: Ambulatory Orders Medication Instructions Recorded Levothyroxine [Synthroid] 100 mg PO DAILY 10/30/17 Glutamine [Endari] 4 t PO UD 11/17/17 Lactulose [Lactulose] 1 dose PO BID 11/17/17 Morphine [Morphine IR] 15 mg PO BID 11/17/17 Senna [Senokot] 1 tablet PO BID 11/17/17 morphine solution (IR) [Roxanol 10 mg PO Q4H PRN PRN 11/17/17 (IR oral solution)] Surgical History: Surgical History (Last Updated 11/17/17 @ 18:09 by Tashi Ellsworth DO) H/O colostomy diverting H/O thyroidectomy E89.0 History of breast surgery Z98.890 Lives: Spouse/ Significant Other Smoking Status: Never smoker Tobacco Use: Non-smoker Alcohol: None Drugs: None - *Family History Maternal Family History: Family History (Last Reviewed 11/17/17 @ 18:09 by Tashi Ellsworth DO) Father Diabetes Heart disease Colon cancer Prostate cancer Skin cancer Mother Heart disease Bone cancer Review of Systems Constitutional: Denies: Chills, Fever, Weight Change Eyes: Denies: Blurred vision, Double vision HEENT: Denies: Head Aches, Sinus Congestion, Sinus Drainage Cardiovascular: Denies: Chest Pain, Palpitations Respiratory: Denies: Cough, Shortness of breath at rest, Sputum production Gastrointestinal: Reports: Abdominal Pain. Denies: Diarrhea, Nausea Genitourinary: Reports: Dysuria, Retention. Denies: - Musculoskeletal: Denies: Joint Pain, Joint Tenderness Skin: Denies: Rash, Wounds Neurological: Reports: - - Patient does have pain going down her left leg.. Denies: Blurred vision, Double vision, Focal weakness, Numbness, Tingling Psychiatric: Denies: Anxiety, Depression Hematologic/ Lymphatic: Denies: Easy Bruising, Easy Bleeding, Hx of blood clot Comment: All review of systems are negative except as mentioned in the history of present illness and the other review of systems. VTE Information - Inpt Only VTE Present on Admission: No VTE Mechan Device Prophylaxis: None VTE Pharm Prophylaxis ordered?: Yes Patient Problems: Active and Suspected Problems (Last Reviewed 06/24/17 @ 07:39 by Sommer Garcia) Hyponatremia (Acute) Urinary retention (Acute) - Physical Exam General: Alert, - - Uncomfortable. Afebrile. HEENT: Atraumatic, Normocephalic Oral: Moist Mucosa, No Gingival or Mucosal Lesions/ Ulcerations Neck: No Nodes, Thyroid Normal Size and Texture Lungs: Clear to auscultation, Normal air movement, No rhonchi, No wheeze Cardiovascular: Regular rate, Regular Rhythm, Normal S1, Normal S2, No murmurs Abdomen: Bowel Sounds Present, Soft, Non Tender, Non-Distended, No Hepato- splenomegaly, - - Colostomy in the right lower quadrant Extremities: No edema, No Calf Tenderness Skin: No rashes, No breakdown Musculoskeletal: No Tenderness to Palpation of Joints or Extremities, No Muscle Wasting Neurological: Neuro grossly intact, Motor Exam 5/5 strength throughout, Sensory exam intact to light touch and pain Psych/Mental Status: Normal Affect, Appropriate Vital Signs Temp Pulse Resp BP Pulse Ox 36.5 C L 88 13 111/73 100 11/17/17 14:08 11/17/17 18:02 11/17/17 18:02 11/17/17 17:34 11/17/17 18:02 Oxygen Delivery Method Room Air Weight: 65.771 kg Body Mass Index (BMI) 24.1 Laboratory Tests Past 24 Hrs 11/17/17 11/17/17 11/17/17 14:30 14:30 14:30 WBC 8.3 RBC 3.80 L Hgb 11.2 L Hct 33.0 L MCV 86.8 MCH 29.5 MCHC 33.9 RDW 12.5 RDW Differential 40.2 Plt Count 270 MPV 8.9 Immature Gran % (Auto) 0.200 Neut % (Auto) 59.3 Lymph % (Auto) 21.7 [place] % (Auto) 12.2 H Eos % (Auto) 6.1 H Baso % (Auto) 0.5 Absolute Neuts (auto) 4.9 Absolute Lymphs (auto) 1.81 Total Counted Not Reportable Sodium 123 L Potassium 3.5 Chloride 88 L Carbon Dioxide 27.0 Anion Gap 8 BUN 13 Creatinine 0.65 Estim Creat Clear Calc 81.79 Est GFR (MDRD) Af Amer 119 Est GFR (MDRD) Non-Af 99 BUN/Creatinine Ratio 20.1 H Glucose 93 Lactic Acid Cancelled Calcium 8.8 Urine Color Urine Clarity Urine pH Ur Specific [place] Urine Protein Urine Glucose (UA) Urine Ketones Urine Occult Blood Urine Nitrite Urine Bilirubin Urine Urobilinogen Ur Leukocyte Esterase Urine RBC Urine WBC Ur Squamous Epith Cells Urine Bacteria Urine Mucus 11/17/17 14:52 WBC RBC Hgb Hct MCV MCH MCHC RDW RDW Differential Plt Count MPV Immature Gran % (Auto) Neut % (Auto) Lymph % (Auto) [place] % (Auto) Eos % (Auto) Baso % (Auto) Absolute Neuts (auto) Absolute Lymphs (auto) Total Counted Sodium Potassium Chloride Carbon Dioxide Anion Gap BUN Creatinine Estim Creat Clear Calc Est GFR (MDRD) Af Amer Est GFR (MDRD) Non-Af BUN/Creatinine Ratio Glucose Lactic Acid Calcium Urine Color Yellow Urine Clarity Clear Urine pH 8.0 Ur Specific [place] 1.015 Urine Protein Negative Urine Glucose (UA) Normal Urine Ketones 50 H Urine Occult Blood Negative Urine Nitrite Negative Urine Bilirubin Negative Urine Urobilinogen 1 H Ur Leukocyte Esterase Negative Urine RBC 0 SEEN Urine WBC 0 SEEN Ur Squamous Epith Cells 0 SEEN Urine Bacteria 0 SEEN Urine Mucus 0 SEEN CAT scan on November 13 showed a heterogenous left pelvic sidewall mass measuring 38 by 39 mm. Assessment/Plan All Active Problems (Last Reviewed 06/24/17 @ 07:39 by Sommer Garcia) Hyponatremia (Acute) Urinary retention (Acute) Regional lymph node metastasis present (Acute) Primary malignant melanoma of gastrointestinal tract (Acute) 1. Hyponatremia * I suspect it is due to volume depletion * I do not suspect SIADH or another process at this time * Plan right now is to give her IV fluids and reevaluate * If upon reevaluation, that her sodium is lower, then would recommend doing additional urine studies with urine sodium, urine osmolality and serum osmolality. * I have ordered a TSH as well. * Consider a Cortrosyn stim test if sodium continues to remain low * I do not feel that the patient requires hypertonic saline at this time 2. Urinary retention * Patient had no issues until starting morphine. This may be related with the pain medications, however with her masses certainly could be another issue. * Patient's symptoms began before her radiation therapy today 3. Malignant melanoma * Patient has completed immunotherapy. Patient is seeing Dr. Phelan in [place] * Currently seeing Dr. Nash, of radiation oncology 4. DVT prophylaxis with Lovenox Code Visit Inpatient E&M: 22851 Init Hosp L3
--- NOTE | 2017-11-17 18:10 | NURSING ---
Carl HYPONATREMIA MOJGAN
[2017-11-17] MEDS: Pantoprazole Sodium 40 MG Tablet PO (19:10)
[2017-11-17] MEDS: 0.9% Normal Saline 1,000 ML 150 ML IV (19:10)
[2017-11-17] MEDS: HYDROmorphone 0.5 MG/0.5 ML SYRINGE IV ×2 (19:45→23:58)
[2017-11-17] MEDS: 0.9% NaCl Peripheral Flush Adult/Peds IV ×2 (19:46→23:59)
[2017-11-17] MEDS: Lactulose 20 GM/30 ML UDC PO (21:39)
[2017-11-17] MEDS: Senna Tablet 1 TABLET PO (21:39)
[2017-11-18 00:05] VITALS: BP 91/52; PULSE 88; RESP 16; TEMP 37.4; O2SAT 95
[2017-11-18 01:51] VITALS: BP 91/52; PULSE 88; RESP 14; TEMP 37.4; O2SAT 95
[2017-11-18] MEDS: 0.9% Normal Saline 1,000 ML 150 ML IV ×4 (01:52→22:45)
[2017-11-18] MEDS: Levothyroxine 112 MCG Tablet PO (06:50)
[2017-11-18 07:17] LABS: Anion Gap 6 (5-15); BUN 5 mg/dL (7-18); BUN/Creat Ratio 7.6 RATIO (10-20); Calcium,Total 7.7 mg/dL (8.5-10.1); Chloride 100 mmol/L (98-107); Creatinine, Serum 0.66 mg/dL (0.55-1.02); EST Glomerular Filtration Rate 96 mL/min (>60); Est Glom Filt Rate - Afr Amer 116 mL/min (>60); Estimated Creatinine Clearance 80.55 ml/min; Glucose 84 mg/dL (74-106); Potassium 4.4 mmol/L (3.5-5.1); Sodium Level 131 mmol/L (136-145)
[2017-11-18 07:56] VITALS: BP 105/61; PULSE 90; RESP 16; TEMP 37.6; O2SAT 99
[2017-11-18] MEDS: Ondansetron 4 MG/2 ML Vial IV (08:09)
[2017-11-18] MEDS: Senna Tablet 1 TABLET PO (10:30)
[2017-11-18] MEDS: Lactulose 20 GM/30 ML UDC PO (10:30)
[2017-11-18] MEDS: Enoxaparin 40 MG/0.4 ML Syringe SC (10:31)
[2017-11-18] MEDS: Pantoprazole Sodium 40 MG Tablet PO (10:31)
--- NOTE | 2017-11-18 10:43 | PCM.PN.HOSP ---
Patient Problems: Active and Suspected Problems (Last Reviewed 11/17/17 @ 18:09 by Tashi Ellsworth DO) Hyponatremia (Acute) Urinary retention (Acute) Subjective: Patient is a 61-year-old admitted with a complaint of inability to void urine and hyponatremia. She has a history of malignant melanoma of the GI tract and is having radiation therapy. She just had her first session of radiation for therapy 1 day ago. She had been complaining of having urinary retention since November 13 and had urine catheter placed on admission which drained a lot of urine of unclear quantity. She was also found to have hyponatremia with sodium of 127=3. Patient seen and examined. She feels better and had no complaints. Nausea and vomiting have also resolved. He denies any fever or chills, and cough or chest pain or shortness of breath. She is due to go for radiotherapy today. Review of systems otherwise negative. Vitals/I&O's: Vital Signs Temp Pulse Resp BP Pulse Ox 99.7 F H 90 16 105/61 99 11/18/17 07:56 11/18/17 07:56 11/18/17 07:56 11/18/17 07:56 11/18/17 07:56 Oxygen Delivery Method Room Air Weight: 145 lb 8 oz Body Mass Index (BMI) 24.2 Intake and Output for Last 24 Hours 11/16/17 11/17/17 11/18/17 23:59 23:59 23:59 Intake Total 2318 / 2318 Output Total 650 / 650 Balance 1668 / 1668 General: Alert, Oriented x3, Cooperative, No apparent distress HEENT: Atraumatic, PERRLA, EOMI, Normocephalic Oral: Moist Mucosa Neck: Supple, No JVD, Negative Carotid Bruits Lungs: Clear to auscultation, Normal air movement, No rhonchi, No wheeze, No rales Cardiovascular: Regular rate, Regular Rhythm, Normal S1, Normal S2, No murmurs Abdomen: Bowel Sounds Present, Soft, Non Tender Extremities: No edema, Capillary Refill Less than 3 Seconds Skin: No rashes, No breakdown Musculoskeletal: No Tenderness to Palpation of Joints or Extremities Lymphatic: No Cervical, Supraclavicular, or Inguinal Adenopathy Neurological: Cranial nerves II-XII grossly intact, Motor Exam 5/5 strength throughout Psych/Mental Status: Normal Affect, Appropriate, Alert and oriented to time, place, person, mood and affect Laboratory Results 11/18/17 06:18: Sodium 131 L, Potassium 4.4, Chloride 100, Carbon Dioxide 25.0, Anion Gap 6, BUN 5 L, Creatinine 0.66, Estim Creat Clear Calc 80.55, Est GFR (MDRD) Af Amer 116, Est GFR (MDRD) Non-Af 96, BUN/Creatinine Ratio 7.6 L, Glucose 84, Calcium 7.7 L, TSH 28.80 H Current Medications Acetaminophen (Tylenol) 650 mg PO Q6H PRN PRN PRN Reason: Mild Pain (1-3)/Temp > 100.7 F Enoxaparin Sodium (Lovenox) 40 mg SC DAILY@1000 COUNT INCLUDES THE [facility] Last Admin: 11/18/17 10:31 Dose: 40 mg Hydromorphone HCl (Dilaudid Inj) 0.5 mg IV Q3H PRN PRN PRN Reason: BREAKTHROUGH PAIN (>4/10) Last Admin: 11/17/17 23:58 Dose: 0.5 mg Hydromorphone HCl (Dilaudid Tablet) 2 mg PO Q3H PRN PRN PRN Reason: SEVERE PAIN (6-10/10) Sodium Chloride () 1,000 mls @ 150 mls/hr IV .Q6H40M COUNT INCLUDES THE [facility] Last Admin: 11/18/17 08:58 Dose: 150 mls/hr Sodium Chloride () 250 mls @ 15 mls/hr IV .[id number] PRN PRN Reason: SALINE FLUSH Lactulose (Chronulac, Cephulac) 20 gm PO BID COUNT INCLUDES THE [facility] Last Admin: 11/18/17 10:30 Dose: 20 gm Levothyroxine Sodium (Synthroid) 112 mcg PO DAILY@0600 COUNT INCLUDES THE [facility] Last Admin: 11/18/17 06:50 Dose: 112 mcg Magnesium Hydroxide (Milk Of Magnesia) 30 ml PO DAILY PRN PRN PRN Reason: Constipation Ondansetron HCl (Zofran) 4 mg IV Q6H PRN PRN PRN Reason: NAUSEA Last Admin: 11/18/17 08:09 Dose: 4 mg Pantoprazole Sodium (Protonix) 40 mg PO DAILY COUNT INCLUDES THE [facility] Last Admin: 11/18/17 10:31 Dose: 40 mg Senna (Senokot) 1 tablet PO BID COUNT INCLUDES THE [facility] Last Admin: 11/18/17 10:30 Dose: 1 tablet Sodium Chloride () 5 - 30 ml IV UD PRN PRN Reason: SALINE FLUSH Last Admin: 11/17/17 23:59 Dose: 10 ml Medical Necessity - Tobacco Use Smoking Status: Never smoker Tobacco Use: Non-smoker Assessment/Plan All Active Problems (Last Reviewed 11/17/17 @ 18:09 by Tashi Ellsworth, ) Hyponatremia (Acute) Urinary retention (Acute) Regional lymph node metastasis present (Acute) Primary malignant melanoma of gastrointestinal tract (Acute) 1. Hyponatremia likely due to volume depletion. sodium up from 123-131 with IV fluid administration. poorly controlled hypothyroidism also likely played a role, as TSH was 28.80. Will adjust synthroid dose Will continue gentle hydration with IV fluids and monitor. 2. Urinary retention says it began with morphine, which she takes for chronic pain. pelvic mass also likely a contributor has figueroa catheter in place will need to follow up with urology upon discharge 3. Hypothroidism poorly controlled. TSH is 28.80 on synthroid 112mcg daily. takes it early in the morning before eating. says her oncologist has been gradually increasing the synthroid dose based on her TSH levels will increase synthroid dose to 125mcg daily. 4. Malignant melanoma sees Dr Phelan in [place]; now seeing Dr Nash of radiation oncology in [place] completed immunotherapy States she is due to have radiation therapy today. This ultimately perforated account of acute illness. 5. Low grade fever tem has been ~ 99.8F has no other symptoms. in light of history of cancer and urinary retention, as well as recent immunotherapy and radiation, will check UA and do blood cultures 6. DVT prophylaxis: lovenox CODE STATUS: Full code Disposition: for possible DC tomorrow. This note was generated with [employer] dictation software. It may contain incorrect words, spelling, and punctuation that were not noted in checking the note before signing. Code Visit Inpatient E&M: 47348 Subs Hosp L3
--- NOTE | 2017-11-18 10:47 | PN_ITS ---
Patient Problems: Active and Suspected Problems (Last Reviewed 11/17/17 @ 18:09 by Tashi Ellsworth DO) Hyponatremia (Acute) Urinary retention (Acute) Subjective: Patient is a 61-year-old admitted with a complaint of inability to void urine and hyponatremia. She has a history of malignant melanoma of the GI tract and is having radiation therapy. She just had her first session of radiation for therapy 1 day ago. She had been complaining of having urinary retention since November 13 and had urine catheter placed on admission which drained a lot of urine of unclear quantity. She was also found to have hyponatremia with sodium of 127=3. Patient seen and examined. She feels better and had no complaints. Nausea and vomiting have also resolved. He denies any fever or chills, and cough or chest pain or shortness of breath. She is due to go for radiotherapy today. Review of systems otherwise negative. Vitals/I&O's: Vital Signs Temp Pulse Resp BP Pulse Ox 99.7 F H 90 16 105/61 99 11/18/17 07:56 11/18/17 07:56 11/18/17 07:56 11/18/17 07:56 11/18/17 07:56 Oxygen Delivery Method Room Air Weight: 145 lb 8 oz Body Mass Index (BMI) 24.2 Intake and Output for Last 24 Hours 11/16/17 11/17/17 11/18/17 23:59 23:59 23:59 Intake Total 2318 / 2318 Output Total 650 / 650 Balance 1668 / 1668 General: Alert, Oriented x3, Cooperative, No apparent distress HEENT: Atraumatic, PERRLA, EOMI, Normocephalic Oral: Moist Mucosa Neck: Supple, No JVD, Negative Carotid Bruits Lungs: Clear to auscultation, Normal air movement, No rhonchi, No wheeze, No rales Cardiovascular: Regular rate, Regular Rhythm, Normal S1, Normal S2, No murmurs Abdomen: Bowel Sounds Present, Soft, Non Tender Extremities: No edema, Capillary Refill Less than 3 Seconds Skin: No rashes, No breakdown Musculoskeletal: No Tenderness to Palpation of Joints or Extremities Lymphatic: No Cervical, Supraclavicular, or Inguinal Adenopathy Neurological: Cranial nerves II-XII grossly intact, Motor Exam 5/5 strength throughout Psych/Mental Status: Normal Affect, Appropriate, Alert and oriented to time, place, person, mood and affect Laboratory Results 11/18/17 06:18: Sodium 131 L, Potassium 4.4, Chloride 100, Carbon Dioxide 25.0, Anion Gap 6, BUN 5 L, Creatinine 0.66, Estim Creat Clear Calc 80.55, Est GFR ( MDRD) Af Amer 116, Est GFR (MDRD) Non-Af 96, BUN/Creatinine Ratio 7.6 L, Glucose 84, Calcium 7.7 L, TSH 28.80 H Current Medications Acetaminophen (Tylenol) 650 mg PO Q6H PRN PRN PRN Reason: Mild Pain (1-3)/Temp > 100.7 F Enoxaparin Sodium (Lovenox) 40 mg SC DAILY@1000 [facility] Last Admin: 11/18/17 10:31 Dose: 40 mg Hydromorphone HCl (Dilaudid Inj) 0.5 mg IV Q3H PRN PRN PRN Reason: BREAKTHROUGH PAIN (>4/10) Last Admin: 11/17/17 23:58 Dose: 0.5 mg Hydromorphone HCl (Dilaudid Tablet) 2 mg PO Q3H PRN PRN PRN Reason: SEVERE PAIN (6-10/10) Sodium Chloride () 1,000 mls @ 150 mls/hr IV .Q6H40M [facility] Last Admin: 11/18/17 08:58 Dose: 150 mls/hr Sodium Chloride () 250 mls @ 15 mls/hr IV .[id number] PRN PRN Reason: SALINE FLUSH Lactulose (Chronulac, Cephulac) 20 gm PO BID [facility] Last Admin: 11/18/17 10:30 Dose: 20 gm Levothyroxine Sodium (Synthroid) 112 mcg PO DAILY@0600 [facility] Last Admin: 11/18/17 06:50 Dose: 112 mcg Magnesium Hydroxide (Milk Of Magnesia) 30 ml PO DAILY PRN PRN PRN Reason: Constipation Ondansetron HCl (Zofran) 4 mg IV Q6H PRN PRN PRN Reason: NAUSEA Last Admin: 11/18/17 08:09 Dose: 4 mg Pantoprazole Sodium (Protonix) 40 mg PO DAILY [facility] Last Admin: 11/18/17 10:31 Dose: 40 mg Senna (Senokot) 1 tablet PO BID [facility] Last Admin: 11/18/17 10:30 Dose: 1 tablet Sodium Chloride () 5 - 30 ml IV UD PRN PRN Reason: SALINE FLUSH Last Admin: 11/17/17 23:59 Dose: 10 ml Medical Necessity - Tobacco Use Smoking Status: Never smoker Tobacco Use: Non-smoker Assessment/Plan All Active Problems (Last Reviewed 11/17/17 @ 18:09 by Tashi Ellsworth DO) Hyponatremia (Acute) Urinary retention (Acute) Regional lymph node metastasis present (Acute) Primary malignant melanoma of gastrointestinal tract (Acute) 1. Hyponatremia likely due to volume depletion. * sodium up from 123-131 with IV fluid administration. * poorly controlled hypothyroidism also likely played a role, as TSH was 28.80. Will adjust synthroid dose * Will continue gentle hydration with IV fluids and monitor. * 2. Urinary retention * says it began with morphine, which she takes for chronic pain. * pelvic mass also likely a contributor * has figueroa catheter in place * will need to follow up with urology upon discharge * 3. Hypothroidism * poorly controlled. TSH is 28.80 * on synthroid 112mcg daily. takes it early in the morning before eating. * says her oncologist has been gradually increasing the synthroid dose based on her TSH levels * will increase synthroid dose to 125mcg daily. * 4. Malignant melanoma * sees Dr Phelan in [place]; now seeing Dr Nash of radiation oncology in [place] * completed immunotherapy * States she is due to have radiation therapy today. This ultimately perforated account of acute illness. * 5. Low grade fever * tem has been ~ 99.8F * has no other symptoms. * in light of history of cancer and urinary retention, as well as recent immunotherapy and radiation, will check UA and do blood cultures * 6. DVT prophylaxis: lovenox CODE STATUS: Full code Disposition: for possible DC tomorrow. This note was generated with [email or web address] dictation software. It may contain incorrect words, spelling, and punctuation that were not noted in checking the note before signing. Code Visit Inpatient E&M: 51731 Subs Hosp L3
[2017-11-18 13:28] VITALS: BP 99/52; PULSE 94; RESP 16; TEMP 37.1; O2SAT 98
[2017-11-18 14:48] LABS: Bacteria 0 SEEN /hpf (None Seen); Mucous, Urine 0 SEEN /hpf (<or=2+); Red Blood Cells-Urine 0 SEEN /hpf (0-5); Squamous Epithelial Cells - UA 0 SEEN /hpf (5-10)
[2017-11-18 14:55] LABS: Color, Urine Yellow (Yellow); Glucose, Dipstick Normal (Normal); Ketone-Dipstick Negative (Negative); Leukocyte Esterase-Dipstick 100 /ul (Negative); Nitrite-Dipstick Negative (Negative); Occult Blood-Urine 10 /ul (Negative); Protein-Dipstick Negative (Negative); Urine Bilirubin Dipstick Negative (Negative); Urine Clarity Clear (Clear); Urine Urobilinogen Normal (Normal)
--- NOTE | 2017-11-18 14:57 | CASEMGMT ---
AVERY RAYA assessment: Pt alert, appropriate, and willing to participate in assessment. Confirmed pt's address, pharmacy ([facility] in [place]), and PCP (Dr. Holliday). Pt reports she lives in a two story home with her spouse. Her bedroom is located on the second floor but has a bathroom available on the 1st floor. Pt states she was independent with her ADL's prior to admission and had been driving. Pt states she had continued to work up until October 30 at [employer] [facility] [employer]. Pt has a walk in shower with a built in bench. Pt does not have and has not needed any DME in the past. Her is available to assist her with any care needs and is able to drive her to appointments, etc. Pt also states her children live close by and are able to assist if needed. Pt states she has a living will and HCPOA (her Skinny) but has not provided these forms to [facility]. Encouraged pt to have forms brought in for scanning when able. Pt denies any DME and/or discharge needs at this time. Discharge plan: Home with support of spouse and family. Will continue to follow for any change in DC needs. Troy Bhatti RN CM
[2017-11-18 15:13] LABS: White Blood Cells 0-5 SEEN /hpf (0-5)
[2017-11-18] MEDS: HYDROmorphone 2 MG TABLET PO (19:25)
[2017-11-18 20:00] VITALS: BP 118/65; PULSE 86; RESP 16; TEMP 36.9; O2SAT 95
[2017-11-19 02:55] VITALS: BP 113/60; PULSE 91; RESP 16; TEMP 37.3; O2SAT 95
[2017-11-19] MEDS: 0.9% NaCl Peripheral Flush Adult/Peds IV (03:12)
[2017-11-19] MEDS: HYDROmorphone 0.5 MG/0.5 ML SYRINGE IV (03:12)
[2017-11-19] MEDS: Levothyroxine 125 MCG Tablet PO (05:32)
[2017-11-19] MEDS: 0.9% Normal Saline 1,000 ML 150 ML IV (05:33)
[2017-11-19 06:26] LABS: Absolute Lymphocyte Count 1.54 X10^3/ul (0.83-4.51); Absolute Neutrophil Count 2.6 X10^3/uL (2.0-7.7); Basophil# 0.03 X10^3/uL; Basophil% 0.5 % (0-1); Eosinophil# 0.48 X10^3/uL; Eosinophils% 8.4 % (0-5); Hematocrit 28.2 % (37-47); Hemoglobin 9.4 g/dl (12.0-15.0); Lymphocyte # 1.54 X10^3/ul (4.0); Lymphocyte % 26.9 % (19-41); Mean Corp Hgb Conc 33.3 g/gl (32-36); Mean Corpuscular Hgb 29.7 pg (27.0-32.0); Mean Corpuscular Volume 89.2 fL (81-99); Mean Platelet Vol. 8.8 fl (6.2-12.0); Monocyte# 1.02 X10^3/uL; Monocyte% 17.8 % (0-10); Neutrophil # 2.61 X10^3/uL (2.7-7.7); Neutrophil % 45.5 % (47-70); Platelet Count 253 K/mm3 (150-450); Red Blood Count 3.16 M/mm3 (4.2-5.4); White Blood Count 5.7 K/mm3 (4.4-11.0)
[2017-11-19 06:27] LABS: POSITIVE COUNT NO; POSITIVE DIFFERENTIAL NO; POSITIVE MORPHOLOGY NO
[2017-11-19 06:39] LABS: Anion Gap 10 (5-15); BUN 3 mg/dL (7-18); BUN/Creat Ratio 5.2 RATIO (10-20); Calcium,Total 7.9 mg/dL (8.5-10.1); Chloride 99 mmol/L (98-107); Creatinine, Serum 0.58 mg/dL (0.55-1.02); EST Glomerular Filtration Rate 112 mL/min (>60); Est Glom Filt Rate - Afr Amer 135 mL/min (>60); Estimated Creatinine Clearance 91.66 ml/min; Glucose 81 mg/dL (74-106); Potassium 3.6 mmol/L (3.5-5.1); Sodium Level 134 mmol/L (136-145)
[2017-11-19 08:37] VITALS: BP 110/61; PULSE 95; RESP 16; TEMP 36.9; O2SAT 100
[2017-11-19] MEDS: HYDROmorphone 2 MG TABLET PO (08:59)
[2017-11-19] MEDS: Enoxaparin 40 MG/0.4 ML Syringe SC (09:53)
[2017-11-19] MEDS: Lactulose 20 GM/30 ML UDC PO (09:53)
[2017-11-19] MEDS: Pantoprazole Sodium 40 MG Tablet PO (09:54)
[2017-11-19] MEDS: Senna Tablet 1 TABLET PO (09:54)
[2017-11-19] MEDS: Acetaminophen 325 MG Tablet 650 MG PO (10:00)
--- NOTE | 2017-11-19 10:45 | PCM.DC ---
- Discharge Diagnoses Current Active Problems: Current Active and Chronic Problems (Last Reviewed 11/17/17 @ 18:09 by Tsahi Ellsworth DO) Hyponatremia (Acute) Urinary retention (Acute) You will use the following diet at home:: Cardiac Your food should be the consistency of: Regular Your liquids should be the consistency of: Regular/Thin Discharge Activity: Return to Normal Activity Weight Bearing Status: Weight bearing as tolerated Call your doctor if you observe: - - worsening back pain, numbness and weakness in lower extremities, urinary and fecal incontinence Allergies/Adverse Reactions: Allergies No Known Allergies Allergy (Verified 11/17/17 15:18) Medications to take at Discharge Glutamine [Endari] 4 t PO UD 11/17/17 Lactulose 30 ml PO BID 11/17/17 Morphine [Morphine IR] 15 mg PO BID 11/17/17 Senna [Senokot] 1 tablet PO BID 11/17/17 morphine solution (IR) [Roxanol (IR oral solution)] 10 mg PO Q4H PRN PRN 11/17/17 Levothyroxine [Synthroid] 125 mcg PO DAILY@0600 #30 tab 11/19/17 The following prescriptions were given: Levothyroxine [Synthroid] 125 mcg PO DAILY@0600 #30 tab Primary Care Physician: Jj Holliday MD [Primary Care Provider] - Please follow up with your Primary Care Physician in: one week Test Results: Test results from this visit will be discussed in further detail at your follow-up appointment, if applicable. When: your oncologist Dr Phelan in one week Proposed Discharge Date: 11/19/17
--- NOTE | 2017-11-19 10:51 | DS.PCM_ITS ---
Discharge Date and Diagnosis Date of Admission: 11/17/17 Date of Discharge: 11/19/17 - Primary Discharge Diagnosis Active and Suspected Problems (Last Reviewed 11/17/17 @ 18:09 by Tashi Ellsworth DO) Hyponatremia (Acute) Urinary retention (Acute) Hospital Course and Treatment Imaging Results: Laboratory Tests 11/17/17 11/17/17 11/17/17 14:30 14:30 14:30 WBC 8.3 RBC 3.80 L Hgb 11.2 L Hct 33.0 L MCV 86.8 MCH 29.5 MCHC 33.9 RDW 12.5 RDW Differential 40.2 Plt Count 270 MPV 8.9 Immature Gran % (Auto) 0.200 Neut % (Auto) 59.3 Lymph % (Auto) 21.7 Camp % (Auto) 12.2 H Eos % (Auto) 6.1 H Baso % (Auto) 0.5 Absolute Neuts (auto) 4.9 Absolute Lymphs (auto) 1.81 Total Counted Not Reportable Sodium 123 L Potassium 3.5 Chloride 88 L Carbon Dioxide 27.0 Anion Gap 8 BUN 13 Creatinine 0.65 Estim Creat Clear Calc 81.79 Est GFR (MDRD) Af Amer 119 Est GFR (MDRD) Non-Af 99 BUN/Creatinine Ratio 20.1 H Glucose 93 Lactic Acid Cancelled Calcium 8.8 TSH Urine Color Urine Clarity Urine pH Ur Specific [place] Urine Protein Urine Glucose (UA) Urine Ketones Urine Occult Blood Urine Nitrite Urine Bilirubin Urine Urobilinogen Ur Leukocyte Esterase Urine RBC Urine WBC Ur Squamous Epith Cells Urine Bacteria Urine Mucus 11/17/17 11/18/17 11/18/17 14:52 06:18 11:20 WBC RBC Hgb Hct MCV MCH MCHC RDW RDW Differential Plt Count MPV Immature Gran % (Auto) Neut % (Auto) Lymph % (Auto) Camp % (Auto) Eos % (Auto) Baso % (Auto) Absolute Neuts (auto) Absolute Lymphs (auto) Total Counted Sodium 131 L Potassium 4.4 Chloride 100 Carbon Dioxide 25.0 Anion Gap 6 BUN 5 L Creatinine 0.66 Estim Creat Clear Calc 80.55 Est GFR (MDRD) Af Amer 116 Est GFR (MDRD) Non-Af 96 BUN/Creatinine Ratio 7.6 L Glucose 84 Lactic Acid Calcium 7.7 L TSH 28.80 H Urine Color Yellow Yellow Urine Clarity Clear Clear Urine pH 8.0 6.0 Ur Specific [place] 1.015 1.010 Urine Protein Negative Negative Urine Glucose (UA) Normal Normal Urine Ketones 50 H Negative Urine Occult Blood Negative 10 H Urine Nitrite Negative Negative Urine Bilirubin Negative Negative Urine Urobilinogen 1 H Normal Ur Leukocyte Esterase Negative 100 H Urine RBC 0 SEEN 0 SEEN Urine WBC 0 SEEN 0-5 SEEN Ur Squamous Epith Cells 0 SEEN 0 SEEN Urine Bacteria 0 SEEN 0 SEEN Urine Mucus 0 SEEN 0 SEEN 11/19/17 11/19/17 06:06 06:06 WBC 5.7 RBC 3.16 L Hgb 9.4 L Hct 28.2 L MCV 89.2 MCH 29.7 MCHC 33.3 RDW 12.0 RDW Differential 38.0 Plt Count 253 MPV 8.8 Immature Gran % (Auto) 0.900 Neut % (Auto) 45.5 L Lymph % (Auto) 26.9 Camp % (Auto) 17.8 H Eos % (Auto) 8.4 H Baso % (Auto) 0.5 Absolute Neuts (auto) 2.6 Absolute Lymphs (auto) 1.54 Total Counted Not Reportable Sodium 134 L Potassium 3.6 Chloride 99 Carbon Dioxide 25.0 Anion Gap 10 BUN 3 L Creatinine 0.58 Estim Creat Clear Calc 91.66 Est GFR (MDRD) Af Amer 135 Est GFR (MDRD) Non-Af 112 BUN/Creatinine Ratio 5.2 L Glucose 81 Lactic Acid Calcium 7.9 L TSH Urine Color Urine Clarity Urine pH Ur Specific [place] Urine Protein Urine Glucose (UA) Urine Ketones Urine Occult Blood Urine Nitrite Urine Bilirubin Urine Urobilinogen Ur Leukocyte Esterase Urine RBC Urine WBC Ur Squamous Epith Cells Urine Bacteria Urine Mucus Summary of Care Provided: Patient is a 61-year-old female with a history of primary malignant melanoma of the GI tract, and malignant melanoma of the pelvis. She was admitted by the ED on 11/17/2017 with a complaint of urinary retention since 11/13/2017. She had just started radiation therapy and not had her first session of radiation a day prior to presentation. She had a catheter placed in the ED which drained a lot of urine but quantity was not clear. This resolved patient's arm urinary retention but still did have a lot of buttock pain on admission from the pelvic mass. She had recently been diagnosed with a new pelvic mass in September that had grown rapidly within a very short period of time and a CAT scan done on 13 November showed that the mass was 38 x 39 mm extending into the rectal fossa. Labs done in the ED showed hyponatremia of 123 with a normal baseline from 137 1 labs were done back in October. She was admitted for further management of her hyponatremia and urinary retention. Hyponatremia was thought to be due to to dehydration as patient says she had been having some nausea with the morphine that she had been taking for her pain. Hyponatremia resolved and gradually trended up to 134 on day of discharge. Patient remained stable. I did discuss with her oncologist in [place], Dr. Phelan who was concerned about possible cord compression. However patient did not have any paresthesia, did not have any weakness in the lower extremities, and did not have any back pain whatsoever and was able to ambulate well without any aid. Patient's TSH was checked on account of hyponatremia was found to be 28.8; TSH on 06/18/17 was 1.87. Patient said her Synthroid dose had been increased gradually by her oncologist because the thyroid was not functioning well. She was on 112 micrograms of Synthroid on admission. This was DC'd and was increased to 125 micrograms daily. She is to follow-up with her primary care doctor for adjustment of her Synthroid dose as needed. Per my discussion with him on phone , her symptoms were therefore unlikely to be due to cord compression. She remained stable and was discharged on 11/19/2017 to follow-up with oncologist and primary care doctor. Patient had a scheduled radiation therapy appointment on day of discharge at 1:30 PM. Next Patient seen and examined prior to discharge. She did complain of mild flank pain which she thought was because she may have pulled a muscle. She denied any back pain, any weakness in her lower extremities, any numbness or paresthesia, or any constipation or urinary review of fecal incontinence. Review of systems is otherwise negative. On examination Vital Signs Height 5 ft 5 in Weight: 145 lb 8 oz Weight in Pounds 145.5 lbs Pulse Ox 100 Temperature 98.5 F Pulse Rate 95 Respiratory Rate 16 Blood Pressure 110/61 Blood Pressure Position Sitting []General: Alert, Oriented x3, Cooperative, No apparent distress HEENT: Atraumatic, PERRLA, EOMI, Normocephalic Oral: Moist Mucosa Neck: Supple, No JVD, Negative Carotid Bruits Lungs: Clear to auscultation, Normal air movement, No rhonchi, No wheeze, No rales Cardiovascular: Regular rate, Regular Rhythm, Normal S1, Normal S2, No murmurs Abdomen: Bowel Sounds Present, Soft, Non Tender Extremities: No edema, Capillary Refill Less than 3 Seconds Skin: No rashes, No breakdown Musculoskeletal: No Tenderness to Palpation of Joints or Extremities Lymphatic: No Cervical, Supraclavicular, or Inguinal Adenopathy Neurological: Cranial nerves II-XII grossly intact, Motor Exam 5/5 strength throughout Psych/Mental Status: Normal Affect, Appropriate, Alert and oriented to time, place, person, mood and affect Plan as stated above. Discharge Diet: 2000 mg Sodium Diet Discharge Activity: Return to Normal Activity Weight Bearing Status: Weight bearing as tolerated Call your doctor if you observe: - - worsening back pain, numbness and weakness in lower extremities, urinary and fecal incontinence Home Medications: Medications to take at Discharge Glutamine [Endari] 4 t PO UD 11/17/17 Lactulose 30 ml PO BID 11/17/17 Morphine [Morphine IR] 15 mg PO BID 11/17/17 Senna [Senokot] 1 tablet PO BID 11/17/17 morphine solution (IR) [Roxanol (IR oral solution)] 10 mg PO Q4H PRN PRN Levothyroxine [Synthroid] 125 mcg PO DAILY@0600 #30 tab 11/19/17 Following Prescrptions Were Given to Patient: Levothyroxine [Synthroid] 125 mcg PO DAILY@0600 #30 tab Primary Care Physician: Jj Holliday MD [Primary Care Provider] - Please follow up with your Primary Care Physician in: one week When: your oncologist Dr Phelan in one week Disposition: Home Minutes spent on discharge:: 40 Patient Condition:: Stable Medical Necessity - Tobacco Use Smoking Status: Never smoker Tobacco Use: Non-smoker Meaningful Use Info Meaningful Use Diagnoses (Choose all that apply): None applicable Code Visit Inpatient E&M: 74273 Disch Hosp
== END 2017-11-19 12:21 | disposition home or self-care (01) | DRG 641 ==
LOC: ED 15:25 → MS3 18:13
PROVIDERS: Emergency Provider Emergency Medicine; Family Provider Internal Medicine; PCP Internal Medicine; Visit Provider Student in an Organized Health Care Education/Training Program
DX: E87.1 Hypo-osmolality and hyponatremia (principal); C79.89 Secondary malignant neoplasm of other specified sites; E03.9 Hypothyroidism, unspecified; R33.9 Retention of urine, unspecified; Z93.3 Colostomy status; C26.9 Malignant neoplasm of ill-defined sites within the digestive system
CPT/HCPCS: 36415; 51702; 80048; 81001; 84443; 85025; 87040; 97110; 97162; 97165; 97530; 99285; J7030; A4216; J2405

== ENCOUNTER → 2017-11-19 13:32 | Outpatient (CLI) | payer BC, SELFPAY ==
--- NOTE | 2017-11-19 13:37 | MRI_ITS ---
STUDY: MRI LUMBAR SPINE WITH AND WITHOUT CONTRAST REASON FOR EXAM: Female, 61 years old. CORD COMPRESSION melanoma rectum, bladder atony , numbness left thigh TECHNIQUE: Standardized fat and water weighted pulse sequences were obtained in the sagittal and axial planes. 7 ml of Gadavist contrast material was administered for the contrast portion of the examination. COMPARISON: None FINDINGS: Normal lumbar lordosis. There is no substantial scoliosis. Normal conus medullaris that terminates at the L1 level. There is no spondylolisthesis. There is disc desiccation and mild loss of disc height at L3-4. Vertebral body heights are maintained. There is a STIR hyperintense, T1 hypointense, enhancing lesion in the right L4 pedicle consistent with a metastasis. There is a metastasis of the anterior superior portion of L2. There is a partially imaged metastasis of the left sacrum. There is mild multilevel facet arthropathy and ligamentum flavum hypertrophy. T12/L1: Sagittal images only were obtained. Normal. L1/2: Normal. L2/3: No disc bulge or herniation or central canal or neuroforaminal stenosis. L3/4: There is a minimal diffuse bulge and bilateral foraminal protrusions with a punctate annular tear on the right. There is impression on the ventral thecal sac and mild right worse than left neuroforaminal stenosis. L4/5: There is a diffuse bulge. There is no central canal stenosis. There is mild right worse than left neural foraminal stenosis. L5/S1: There is a slight diffuse bulge larger on the left without central canal or neuroforaminal stenosis. Normal visualized paraspinous soft tissue structures. MRI/Spine Lumbar W/WO Contrast IMPRESSION: There are multiple bony metastases. No demonstrated cord compression. There are mild degenerative changes. Electronically Signed: Kristi Magaña MD at 15:32 EDT , Service support ,
== END ==
PROVIDERS: Family Provider Internal Medicine; PCP Internal Medicine; Visit Provider Radiology Radiation Oncology
DX: C20 Malignant neoplasm of rectum (principal); N31.2 Flaccid neuropathic bladder, not elsewhere classified; R20.0 Anesthesia of skin
CPT/HCPCS: 72158; A9585

== ENCOUNTER 2017-12-20 07:24 | Emergency (ER) | payer BC, SELFPAY ==
[2017-12-20] VITALS (7 sets, daily range): BP systolic 102–134; BP diastolic 53–65; PULSE 86–101; RESP 15–21; TEMP 36.8; O2SAT 99–100; BMI 22.3
--- NOTE | 2017-12-20 07:26 | EKG12_ITS ---
Test Reason : CP Blood Pressure : / mmHG Vent. Rate : 096 BPM Atrial Rate : 096 BPM P-R Int : 156 ms QRS Dur : 070 ms QT Int : 334 ms P-R-T Axes : 072 -01 032 degrees QTc Int : 421 ms Normal sinus rhythm Normal ECG Confirmed by KISHA DIAZ, TOM ([id number]), assignment desk editor USMAN URIAS ([id number]) on 12/22/2017 1:29:52 PM Referred By: MARYA Confirmed By:TOM BEARD MD
[2017-12-20] MEDS: Aspirin 81 MG TAB.CHEW 324 MG PO (08:07)
[2017-12-20] MEDS: 0.9% Normal Saline 1,000 ML 1000 ML IV (08:07)
[2017-12-20 08:10] LABS: Anion Gap 10 (5-15); BUN 12 mg/dL (7-18); Calcium,Total 8.6 mg/dL (8.5-10.1); Chloride 107 mmol/L (98-107); Creatinine, Serum 0.63 mg/dL (0.55-1.02); EST Glomerular Filtration Rate 101 mL/min (>60); Est Glom Filt Rate - Afr Amer 122 mL/min (>60); Estimated Creatinine Clearance 83.31 ml/min; Glucose 81 mg/dL (74-106); Potassium 3.8 mmol/L (3.5-5.1); Sodium Level 141 mmol/L (136-145)
[2017-12-20 08:16] LABS: Absolute Lymphocyte Count 0.79 X10^3/ul (0.83-4.51); Absolute Neutrophil Count 4.6 X10^3/uL (2.0-7.7); Basophil# 0.03 X10^3/uL; Basophil% 0.4 % (0-1); Eosinophil# 0.61 X10^3/uL; Eosinophils% 8.8 % (0-5); Hematocrit 30.4 % (37-47); Hemoglobin 9.8 g/dl (12.0-15.0); Lymphocyte # 0.79 X10^3/ul (4.0); Lymphocyte % 11.4 % (19-41); Mean Corp Hgb Conc 32.2 g/gl (32-36); Mean Corpuscular Hgb 29.2 pg (27.0-32.0); Mean Corpuscular Volume 90.5 fL (81-99); Mean Platelet Vol. 8.1 fl (6.2-12.0); Monocyte# 0.85 X10^3/uL; Monocyte% 12.2 % (0-10); Neutrophil # 4.64 X10^3/uL (2.7-7.7); Neutrophil % 66.8 % (47-70); POSITIVE COUNT NO; POSITIVE DIFFERENTIAL NO; POSITIVE MORPHOLOGY NO; Platelet Count 339 K/mm3 (150-450); RBC Distribution Width CV 14.6 % (11.6-14.6); RBC Distribution Width SD 46.7 fl (35.1-43.9); Red Blood Count 3.36 M/mm3 (4.2-5.4)
[2017-12-20] MEDS: HYDROcodone Bitartrate/Apap 5/325 Tablet PO (11:21)
[2017-12-20] MEDS: Ondansetron 4 MG/2 ML Vial IV (11:30)
--- NOTE | 2017-12-20 12:27 | ED.VISSUMM ---
- ER Visit Summary Date of Service: 12/20/17 Chief Complaint: Chest pain History of Present Illness: The patient is a 62 F with a history of mucosal melanoma with metastatic disease. She has been having back pains for several days, and today the pain progressed to her left chest. She denies any shortness of breath or cough. Denies fevers or sputum. Denies any history of DVT or PE. No history of acute coronary syndrome. No history of stress testing. No history of aortic disease. Physical Examination: Afebrile and vital signs unremarkable. No acute distress. Heart regular rate and rhythm. Lungs clear. Abdomen soft and nontender. Calf soft and supple. Pulses strong and equal. Skin appears slightly pale. Otherwise unremarkable. Test Results: EKG showed sinus rhythm at a rate of 96. No sign of acute ischemia or infarction pattern. Hemoglobin 9.8. BMP normal. Troponin normal. D-dimer elevated. Chest x-ray showed no acute findings. CTA was done and showed worsening of her metastatic nodules in her chest. No sign of PE or dissection. Emergency Department Course and Treatment: Patient initially treated with aspirin while awaiting results. Patient had no improvement in her pain and required treatment with [place] and Flexeril. Her workup was all fairly unremarkable except for a worsening of her metastatic disease. No sign of PE or dissection. I advised the patient she has not been completely evaluated from a cardiac standpoint. Her EKG and troponin are reassuring. Patient declined further workup or admission regarding her chest pain. She did feel better after Flexeril and [place]. I will prescribe a short course of this. Patient will follow up with her oncologist later this week. I advised her to return right away if she has new or worsening issues. Treatment Plan: As above Disposition: Discharged Impression: 1. Left chest pain This note was generated with [employer] dictation software. It may contain incorrect words, spelling, and punctuation that were not noted in review of the chart prior to signing ED Disposition - Plan for ED Patient: Chief Complaint: Chest Pain Referrals: Jj Holliday MD [Primary Care Provider] -
--- NOTE | 2017-12-20 12:30 | ED.DCSUM_ITS ---
- ER Visit Summary Date of Service: 12/20/17 Chief Complaint: Chest pain History of Present Illness: The patient is a 62 F with a history of mucosal melanoma with metastatic disease. She has been having back pains for several days, and today the pain progressed to her left chest. She denies any shortness of breath or cough. Denies fevers or sputum. Denies any history of DVT or PE. No history of acute coronary syndrome. No history of stress testing. No history of aortic disease. Physical Examination: Afebrile and vital signs unremarkable. No acute distress. Heart regular rate and rhythm. Lungs clear. Abdomen soft and nontender. Calf soft and supple. Pulses strong and equal. Skin appears slightly pale. Otherwise unremarkable. Test Results: EKG showed sinus rhythm at a rate of 96. No sign of acute ischemia or infarction pattern. Hemoglobin 9.8. BMP normal. Troponin normal. D-dimer elevated. Chest x-ray showed no acute findings. CTA was done and showed worsening of her metastatic nodules in her chest. No sign of PE or dissection. Emergency Department Course and Treatment: Patient initially treated with aspirin while awaiting results. Patient had no improvement in her pain and required treatment with [place] and Flexeril. Her workup was all fairly unremarkable except for a worsening of her metastatic disease. No sign of PE or dissection. I advised the patient she has not been completely evaluated from a cardiac standpoint. Her EKG and troponin are reassuring. Patient declined further workup or admission regarding her chest pain. She did feel better after Flexeril and [place]. I will prescribe a short course of this. Patient will follow up with her oncologist later this week. I advised her to return right away if she has new or worsening issues. Treatment Plan: As above Disposition: Discharged Impression: 1. Left chest pain This note was generated with [employer] dictation software. It may contain incorrect words, spelling, and punctuation that were not noted in review of the chart prior to signing ED Disposition - Plan for ED Patient: Chief Complaint: Chest Pain Referrals: Jj Holliday MD [Primary Care Provider] -
--- NOTE | 2017-12-20 12:30 | ED.DEP ---
ED Disposition - Plan for ED Patient: Chief Complaint: Chest Pain Instructions: ED Chest Pain Atypical Unkn Cause Prescriptions: Hydrocodone Bitart/Apap 5-325 [[place] 5MG-325MG] 1 tab PO Q6H PRN PRN 3 Days #12 tab PRN Reason: Pain Cyclobenzaprine [Flexeril] 10 mg PO TID PRN #20 tab PRN Reason: Muscle Spasm Referrals: Jj Holliday MD [Primary Care Provider] -
== END 2017-12-20 12:55 | disposition home or self-care (01) ==
LOC: ED 08:31
PROVIDERS: Emergency Provider Emergency Medicine; Family Provider Internal Medicine; PCP Internal Medicine
DX: R07.9 Chest pain, unspecified (principal); M54.9 Dorsalgia, unspecified; C79.9 Secondary malignant neoplasm of unspecified site; Z85.820 Personal history of malignant melanoma of skin
CPT/HCPCS: 71045; 71275; 80048; 84484; 85025; 85379; 93005; 96361; 96374; 99283; Q9967; A4216; J2405

== ENCOUNTER → 2018-06-24 12:00 | Outpatient (CLI) | payer BC, SELFPAY ==
--- NOTE | 2018-06-24 12:19 | RAD_ITS ---
STUDY: X-RAY CHEST REASON FOR EXAM: Female, 62 years old. Chest pain, history of melanoma TECHNIQUE: PA and lateral views of the chest. COMPARISON: 12/20/2017 FINDINGS: Right subclavian port tip in the proximal SVC There are interstitial fibrotic changes of the lungs. There is opacification however in the right costophrenic angle much more conspicuous than on the previous study. This could represent a metastasis. Further evaluation with chest CT recommended Normal size heart. Normal mediastinum and sheri. Normal visualized pulmonary arteries. Normal visualized aortic arch and descending thoracic aorta. Normal visualized thoracic spine. Normal visualized ribs, clavicles, and shoulders. There is no demonstrated abnormality of the visualized soft tissue structures of the upper abdomen. RAD/Chest PA and Lateral IMPRESSION: Chronic interstitial changes, no superimposed acute pulmonary process 1.5 cm nodule in the right costophrenic angle more conspicuous than on the previous study. Recommend further evaluation with chest CT Electronically Signed: Jorge Palm MD at 13:54 EDT , Service support ,
== END ==
PROVIDERS: Family Provider Internal Medicine; PCP Internal Medicine
DX: R07.9 Chest pain, unspecified (principal); Z85.820 Personal history of malignant melanoma of skin
CPT/HCPCS: 71046

== ENCOUNTER → 2018-08-04 08:48 | Outpatient (CLI) | payer BC, SELFPAY ==
--- NOTE | 2018-08-04 08:50 | CT_ITS ---
HISTORY: RADIATION PLANNING CT, MUCOUSAL MELANOMA OF RECTUM-COLOSTOMY, NEW BONE METS, HAD RAD TX TECHNIQUE: Helically acquired images were obtained of the abdomen and pelvis without oral or IV contrast. A radiation dose optimization technique was used for this scan. COMPARISON: 11/01/17 CT abdomen and pelvis. FINDINGS: # of images incl. paperwork: 171 Interval development of a destructive lesion in the L2 vertebral body with mild pathologic compression fracture. Interval development of a larger destructive lesion with soft tissue component in the right pedicle, transverse process and right posterior vertebral body of L4, with extra vertebral extension into the adjacent paraspinal soft tissues and into the epidural space, not well evaluated. Interval development of a destructive lesion in the left lower sacrum with nondisplaced pathologic fracture. Metastatic left external iliac lymphadenopathy new compared to prior, reference lesion axial image 116 2.7 cm diameter. Metastatic retroperitoneal lymphadenopathy new compared to previous, including a low density likely necrotic lymph node along the right anterior aspect of the aortic bifurcation, 3.2 cm diameter. Prominent more cephalad retroperitoneal lymphadenopathy also new compared to prior. Pleural base lesion deep to the right lateral eighth rib partially visible. Increase in size compared to prior. Several nodules in the lung bases have decreased in size and number compared to prior. No visible lesions in the liver, gallbladder, pancreas, spleen, adrenal glands, kidneys, urinary bladder, uterus or ovaries. Incompetence of the pelvic floor with a portion of the urinary bladder, uterus and vagina, and small bowel herniating through the pelvic floor, unchanged. No obstruction or inflammation of the bowel. Right lower quadrant colostomy. Status post partial left colectomy. CT/Abdomen/Pelvis without Cont IMPRESSION: Interval development of metastatic lesions in the L2 and L4 vertebra and left lower sacrum. Metastatic left external iliac and retroperitoneal lymphadenopathy is new compared to prior. Lesions in the partially visible lung bases have decreased compared to prior. Individualized dose optimization techniques were used for this CT. at 1123 Reported and signed by: Erik Yusuf MD Electronically Signed: Erik Yusuf, at 11:22 EDT Tel , Service support ,
== END ==
PROVIDERS: Family Provider Internal Medicine; PCP Internal Medicine; Referring Provider Radiology Radiation Oncology; Visit Provider Radiology Radiation Oncology
DX: C20 Malignant neoplasm of rectum (principal); C79.51 Secondary malignant neoplasm of bone
CPT/HCPCS: 74176

== ENCOUNTER 2018-09-03 15:59 | Observation (INO) | payer BC, SELFPAY ==
[2018-08-16 14:48] VITALS: BMI 22.3
[2018-09-03] VITALS (7 sets, daily range): BP systolic 96–115; BP diastolic 49–58; PULSE 94–109; RESP 18–28; TEMP 37.1–37.2; O2SAT 96–99; BMI 19.9; BMI 20.4
--- NOTE | 2018-09-03 16:13 | EKG12_ITS ---
Test Reason : ALTERED LOC Blood Pressure : / mmHG Vent. Rate : 107 BPM Atrial Rate : 107 BPM P-R Int : 132 ms QRS Dur : 066 ms QT Int : 350 ms P-R-T Axes : 054 033 049 degrees QTc Int : 467 ms Sinus tachycardia Otherwise normal ECG Confirmed by SELENE RENEE ([id number]), newspaper or periodical editor USMAN URIAS ([id number]) on 09/08/2018 11:36:47 AM Referred By: William Lal Confirmed By:SALVATORE RENEE
--- NOTE | 2018-09-03 16:14 | CT_ITS ---
STUDY: CTA CHEST REASON FOR EXAM: Female, 62 years old. Confusion, back pain RADIATION DOSAGE (If Supplied By Facility): CTDIvol = ( 26.61 ) mGy, DLP = ( 1852.00 ) mGycm TECHNIQUE: The examination was performed with the intravenous administration of 100 IV Isovue 370. Post-processing of the angiographic images was performed, with multiplanar reformation and 3D reconstruction. Individualized dose optimization techniques were used for this CT. COMPARISON: Previous study of 12/20/2017 FINDINGS: Normal enhancement of the main pulmonary artery and right and left pulmonary arteries. Normal enhancement of the bilateral peripheral pulmonary arteries. There is no demonstrated pulmonary embolism. Normal thoracic aorta and visualized great vessels. There is no demonstrated aortic dissection. Normal heart and pericardium. There is a posterior mediastinal mass measuring 6.1 x 4.0 x 6.6 cm, markedly increased in size from the previous study. There is extensive bilateral hilar adenopathy, also markedly increased from the previous study. Normal visualized trachea and bronchi. The lungs are well expanded. There are numerous bilateral pulmonary nodules, which overall have decreased in number from the previous study, but many of the remaining nodules have significantly increased in size in the interval. There is a large pleural-based mass of the lateral right lower hemithorax measuring 5.2 x 3.6 x 3.7 cm which has significantly increased in size in the interval. Normal pleura. Normal chest wall structures. Normal osseous structures. Normal visualized upper abdomen. CT/CTA Chest W/WO Contrast IMPRESSION: There is no evidence of pulmonary embolism or aortic dissection. There is extensive hilar and mediastinal adenopathy, significantly worsened from the previous study. There are numerous bilateral pulmonary nodules which have overall decreased in number from the previous study, but many of the remaining nodules have significantly increased in size in the interval. There is a large pleural-based mass in the lateral right lower hemithorax measuring 5.2 x 3.6 x 3.7 cm consistent with metastatic lesion, which has significantly increased in size in the interval. Electronically Signed: Erik Robison MD at 18:27 EDT , Service support ,
--- NOTE | 2018-09-03 16:14 | CT_ITS ---
STUDY: CT BRAIN WITH AND WITHOUT CONTRAST REASON FOR EXAM: Female, 62 years old. Confusion, fall 2 days ago, history of rectal cancer with diastases. RADIATION DOSAGE (If Supplied By Facility): CTDIvol = ( 26.61 ) mGy, DLP = ( 1852.00 ) mGycm TECHNIQUE: Transaxial CT imaging of the brain was performed pre and post contrast administration. The examination was performed with intravenous administration of 100 IV Isovue 370. Individualized dose optimization techniques were used for this CT. COMPARISON: None. FINDINGS: There is a 1.0 cm subcutaneous nodule of the posterior left parietal scalp which may represent a pilar cyst. Normal calvarium. Normal size ventricles and extra-axial spaces for the patient's age. Normal white matter tracts of the cerebral hemispheres. Normal basal ganglia and thalami. Normal brainstem. Normal cerebellum. There is no intracranial hemorrhage. There are no findings of an acute ischemic infarction. Normal visualized paranasal sinuses. CT/Brain/Head W/WO Contrast IMPRESSION: Small scalp nodule of the left parietal region which may represent a pilar cyst. The study is otherwise unremarkable. Electronically Signed: Erik Robison MD at 18:15 EDT , Service support ,
[2018-09-03] MEDS: HYDROmorphone 1 MG/ML Syringe IV ×3 (16:43→18:46)
[2018-09-03] MEDS: 0.9% Normal Saline 1,000 ML 1000 ML IV (16:43)
[2018-09-03] MEDS: Ondansetron 4 MG/2 ML Vial IV ×2 (16:43→22:29)
[2018-09-03 16:59] LABS: Absolute Lymphocyte Count 0.18 X10^3/ul (0.83-4.51); Absolute Neutrophil Count 4.8 X10^3/uL (2.0-7.7); Basophil# 0.01 X10^3/uL; Basophil% 0.2 % (0-1); Eosinophil# 0.06 X10^3/uL; Lymphocyte # 0.18 X10^3/ul (4.0); Lymphocyte % 3.1 % (19-41); Mean Corp Hgb Conc 32.3 g/gl (32-36); Mean Corpuscular Hgb 28.7 pg (27.0-32.0); Mean Corpuscular Volume 89.1 fL (81-99); Mean Platelet Vol. 8.8 fl (6.2-12.0); Monocyte# 0.68 X10^3/uL; Monocyte% 11.8 % (0-10); Neutrophil # 4.82 X10^3/uL (2.7-7.7); Neutrophil % 83.7 % (47-70); Platelet Count 119 K/mm3 (150-450); RBC Distribution Width CV 16.4 % (11.6-14.6); RBC Distribution Width SD 53.8 fl (35.1-43.9); Red Blood Count 3.48 M/mm3 (4.2-5.4); White Blood Count 5.8 K/mm3 (4.4-11.0)
[2018-09-03 17:02] LABS: Differential Indicated SCAN CRITERIA MET; POSITIVE COUNT NO; POSITIVE DIFFERENTIAL YES; POSITIVE MORPHOLOGY NO
[2018-09-03 17:24] LABS: ALB/GLOB Ratio 0.7 RATIO (0.9-2.4); AST(SGOT) 47 U/L (15-37); Alanine Aminotransfer ALT/SGPT 21 U/L (13-56); Albumin, Serum 2.7 g/dL (3.2-5.0); Alkaline Phosphatase 183 U/L (45-117); Anion Gap 10 (5-15); BUN 11 mg/dL (7-18); BUN/Creat Ratio 25.5 RATIO (10-20); Chloride 100 mmol/L (98-107); Creatinine, Serum 0.43 mg/dL (0.55-1.02); EST Glomerular Filtration Rate 157 mL/min (>60); Est Glom Filt Rate - Afr Amer 190 mL/min (>60); Globulin 4.1 g/dL (2.2-4.2); Glucose 107 mg/dL (74-106); Potassium 3.5 mmol/L (3.5-5.1); Protein, Total 6.8 g/dL (6.4-8.2); Sodium Level 133 mmol/L (136-145)
[2018-09-03 17:25] LABS: Anisocytosis RARE; Platelet Estimate SLT DEC (ADEQ)
[2018-09-03] MEDS: proMETHazine 25 MG/ML Syringe 12.5 MG IV (18:27)
[2018-09-03] MEDS: 0.9% Normal Saline 1,000 ML 999 ML IV (18:33)
--- NOTE | 2018-09-03 18:56 | HP.PCM_ITS ---
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 Patient reports 2-day history of nausea and vomiting and inability to keep anything down. She also did complain of progressive generalized weakness. She suspected she was dehydrated and subsequently presented to the ED. In the emergency department CT of the head with and without contrast was negative for any mets to the brain. CT of the lungs demonstrated metastatic lesions. Patient was admitted to a regular nursing floor for symptomatic management of her intractable nausea and vomiting Past Medical History Past Medical History (Chronic Problems): Chronic Problems (Last Reviewed 09/03/18 @ 18:54 by William Lal MD) Urinary retention (Chronic) Malignant neoplasm of colorectal area with metastasis (Chronic) Chronic constipation (Chronic) Regional lymph node metastasis present (Chronic) Primary malignant melanoma of gastrointestinal tract (Chronic) Medical History: Medical History (Last Reviewed 09/03/18 @ 18:54 by William Lal MD) Regional lymph node metastasis present (Chronic) C77.9 Primary malignant melanoma of gastrointestinal tract (Chronic) C26.9 Allergies No Known Allergies Allergy (Verified 09/03/18 16:01) Home Medications: Ambulatory Orders Medication Instructions Recorded Senna [Senokot] 1 tab PO BID 11/17/17 acetaminophen 500 mg tablet 500 mg PO Q6H PRN 08/16/18 apixaban 2.5 mg tablet 2.5 mg PO BID 08/16/18 levothyroxine 125 mcg tablet 250 mcg PO DAILY@0600 tab 08/16/18 oxycodone 15 mg tablet 15 mg PO QHS 08/16/18 prednisone 2.5 mg tablet 2.5 mg PO ONCE 08/16/18 prednisone 5 mg tablet 5 mg PO DAILY 08/16/18 Metoclopramide [Reglan] 1 tab PO Q6H 09/03/18 Olanzapine 5 mg PO QHS 09/03/18 Surgical History: Surgical History (Last Reviewed 09/03/18 @ 18:54 by William Lal MD) H/O colostomy diverting H/O thyroidectomy E89.0 History of breast surgery Z98.890 Smoking Status: Never smoker - *Family History Maternal Family History: Family History (Last Reviewed 09/03/18 @ 18:54 by William Lal MD) Father Diabetes Heart disease Colon cancer Prostate cancer Skin cancer Mother Heart disease Bone cancer Review of Systems Constitutional: Reports: Anorexia, Malaise, Fatigue HEENT: Denies: Head Aches, Sinus Congestion, Sinus Drainage Cardiovascular: Denies: Chest Pain, Orthopnea, Palpitations, Paroxysmal Noc. Dyspnea Respiratory: Denies: Cough, Shortness of breath at rest, Shortness of breath upon exertion, Sputum production Gastrointestinal: Reports: Nausea, Vomiting Genitourinary: Denies: Dysuria, Frequency, Hematuria, Urgency Musculoskeletal: Denies: Joint Pain, Joint Tenderness Skin: Denies: Rash Neurological: Denies: Focal weakness, Numbness, Tingling Psychiatric: Denies: Homicidal Ideations, Suicidal Ideations Hematologic/ Lymphatic: Denies: Easy Bruising, Easy Bleeding VTE Information - Inpt Only VTE Present on Admission: No VTE Mechan Device Prophylaxis: None VTE Pharm Prophylaxis ordered?: Yes Patient Problems: Active and Suspected Problems (Last Reviewed 09/03/18 @ 18:54 by William Lal MD) Nausea & vomiting (Acute) Hypokalemia (Acute) Dehydration (Acute) Objective: GENERAL: Appears frail looking HEENT: Atraumatic; dry oral mucosa EYES; Anicteric, Normal Conjunctiva NECK; supple, normal thyroid, RESPIRATORY: Diminished to auscultation CARDIOVASCULAR: Regular S1 S2, GI: soft, colostomy in place : No Renal angle tenderness; EXTREMITIES: No edema, no clubbing, no cyanosis. MUSCULOSKELETAL: No Joint Tenderness; NEURO: Awake; no lateralizing signs. SKIN: No Rash PSYCH; flat affect - Physical Exam Vital Signs Temp Pulse Resp BP Pulse Ox 98.8 F 95 26 H 106/49 L 97 09/03/18 15:59 09/03/18 18:18 09/03/18 18:18 09/03/18 18:18 09/03/18 18:18 Weight: 54.4 kg Body Mass Index (BMI) 19.9 Laboratory Tests Past 24 Hrs 09/03/18 09/03/18 16:40 16:40 WBC 5.8 RBC 3.48 L Hgb 10.0 L Hct 31.0 L MCV 89.1 MCH 28.7 MCHC 32.3 RDW 16.4 H RDW Differential 53.8 H Plt Count 119 L MPV 8.8 Immature Gran % (Auto) 0.200 Neut % (Auto) 83.7 H Lymph % (Auto) 3.1 L Williamson % (Auto) 11.8 H Eos % (Auto) 1.0 Baso % (Auto) 0.2 Absolute Neuts (auto) 4.8 Absolute Lymphs (auto) 0.18 L Total Counted Not Reportable Differential Comment SEE COMMENT Platelet Estimate SLT DEC Anisocytosis RARE Sodium 133 L Potassium 3.5 Chloride 100 Carbon Dioxide 23.0 Anion Gap 10 BUN 11 Creatinine 0.43 L Estim Creat Clear Calc 116.50 Est GFR (MDRD) Af Amer 190 Est GFR (MDRD) Non-Af 157 BUN/Creatinine Ratio 25.5 H Glucose 107 H Calcium 8.0 L Total Bilirubin 0.40 AST 47 H ALT 21 Alkaline Phosphatase 183 H Troponin I < 0.015 Total Protein 6.8 Albumin 2.7 L Globulin 4.1 Albumin/Globulin Ratio 0.7 L Assessment/Plan All Active Problems (Last Reviewed 09/03/18 @ 18:54 by William Lal MD) Hyponatremia (Acute) Nausea & vomiting (Acute) Hypokalemia (Acute) Dehydration (Acute) Patient is a 62-year-old lady with history of metastatic melanoma involving the GI tract presented with intractable nausea vomiting 1. Intractable nausea vomiting in the patient with metastatic melanoma admitted to the regular nursing floor for symptomatic management with aggressive IV fluid resuscitation, use of anti-emetics as well as H2 blockers for possible gastritis 2. Severe dehydration secondary to above patient is on IV fluid 3. Hyponatremia secondary to hypovolemic hyponatremia; patient on fluids with monitoring of electrolyte 4. Hypokalemia corrected per protocol 5. Primary melanoma involving the GI tract with meds to the spine spleen and lungs recently completed radiation therapy currently on a clinical trial with immunotherapy patient is followed by an oncologist in [place] plan is for patient to resume care following her discharge 6. Hypothyroidism-patient is on levothyroxine home dose continued 7. DVT prophylaxis on Eliquis Code Visit OBSV E&M: [id number] Initial observation care L3
--- NOTE | 2018-09-03 19:06 | ED.DCSUM_ITS ---
- ER Visit Summary Date of Service: 09/03/18 Chief Complaint: [Nausea and vomiting] History of Present Illness: The patient is a 62 F [presents the emergency department with decreased p.o. intake for the last several weeks. Patient has had increased confusion for a couple of days. Patient had a fall 2 days ago in the bathroom. Patient has history of metastatic melanoma. Patient has metastasis to the spine and to the lung. Patient finished radiation 10 days ago. Family states she cannot eat or drink. Patient not currently on any blood thinners. She denies any abdominal pain. She denies chest pain. She describes pain between her shoulder blades.] Physical Examination: [HEENT-PERRLA, EOMI. Cranial nerves II through XII grossly intact. TMs clear. Mucous membranes dry. No adenopathy. Cardiovascular-regular and tachycardic without murmur or ectopy Lungs-clear to auscultation, chest wall stable without crepitus or subcu emphysema Abdomen-normoactive bowel sounds, soft, nontender, no rebound or rigidity, no peritoneal signs. Extremities-intact ?4, normal range of motion, normal pulses, atraumatic] Test Results: [EKG obtained arrival shows sinus tachycardia with a ventricular rate of 107 bpm. CBC with differential showed a white count of 5.8, hemoglobin 10, hematocrit 31, platelets 119. Chemistry showed a sodium 133, potassium 3.5, chloride 100, CO2 23, BUN 11, creatinine 0.43. LFTs unremarkable. Lipase is pending. Troponin is less than 0.015. CT scan of the brain without contrast and with contrast was unremarkable. CTA of the chest did not show no evidence for PE or dissection. Patient was noted to have extensive hilar and mediastinal adenopathy and there were numerous bilateral pulmonary nodules there is a large pleural-based mass in the lateral right lower hemothorax measuring 5.2 x 3.6 x 3.7 cm consistent with metastatic lesion. No bony metastasis noted.] Emergency Department Course and Treatment: [She was medicated with Dilaudid and Zofran. Patient was given 2 L of fluid normal saline. Patient still has not urinated. Patient continues to complain of pain and nausea.] Treatment Plan: [Admit for symptom management. I did speak with patient's oncologist Dr. Phelan who is aware of patient's condition.] Disposition: [Admit] Impression: [Intractable nausea and back pain Dehydration] This note was generated with [employer] dictation software. It may contain incorrect words, spelling, and punctuation that were not noted in review of the chart prior to signing ED Disposition - Plan for ED Patient: Referrals: Jj Holliday MD [Primary Care Provider] -
[2018-09-03 19:20] LABS: Bacteria 0 SEEN /hpf (None Seen); Mucous, Urine 0 SEEN /hpf (<or=2+); Red Blood Cells-Urine 0 SEEN /hpf (0-5); Squamous Epithelial Cells - UA 0 SEEN /hpf (5-10)
[2018-09-03 19:28] LABS: Lipase 49 U/L (73-393)
[2018-09-03 19:29] LABS: Color, Urine Yellow (Yellow); Glucose, Dipstick Normal (Normal); Leukocyte Esterase-Dipstick 100 /ul (Negative); Nitrite-Dipstick Negative (Negative); Occult Blood-Urine 10 /ul (Negative); Protein-Dipstick 15 mg/dl (Negative); Specific Gravity, Urine 1.005 (1.002-1.030); Urine Bilirubin Dipstick Negative (Negative); Urine Clarity Clear (Clear); Urine Urobilinogen Normal (Normal)
[2018-09-03 19:30] LABS: Ketone-Dipstick 150 mg/dl (Negative)
[2018-09-03 19:32] LABS: White Blood Cells 0-5 SEEN /hpf (0-5)
[2018-09-03] MEDS: Morphine 4 MG/ML Syringe IV (20:57)
[2018-09-03] MEDS: APIXABAN 2.5 MG TABLET PO (22:29)
[2018-09-03] MEDS: Famotidine 20 MG Tablet PO (22:29)
[2018-09-03] MEDS: Senna Tablet 1 TABLET PO (22:29)
[2018-09-03] MEDS: Ensure Clear 120 ML Liquid PO (22:32)
[2018-09-03] MEDS: oxyCODONE 5 MG Tablet PO (22:56)
[2018-09-04] VITALS (8 sets, daily range): BP systolic 110–123; BP diastolic 50–69; PULSE 96–132; RESP 14–28; TEMP 36.6–38.9; O2SAT 96–100
[2018-09-04] MEDS: Morphine 4 MG/ML Syringe IV ×5 (00:18→19:41)
[2018-09-04] MEDS: proMETHazine 25 MG/ML Syringe IM (00:19)
[2018-09-04] MEDS: Acetaminophen 500 MG Tablet PO ×2 (02:38→09:57)
[2018-09-04] MEDS: 0.9% NaCl VAD Flush 10 ML IV ×7 (05:42→19:42)
[2018-09-04 06:07] LABS: Absolute Lymphocyte Count 0.36 X10^3/ul (0.83-4.51); Absolute Neutrophil Count 3.9 X10^3/uL (2.0-7.7); Basophil# 0.01 X10^3/uL; Basophil% 0.2 % (0-1); Eosinophil# 0.12 X10^3/uL; Eosinophils% 2.3 % (0-5); Hematocrit 29.2 % (37-47); Lymphocyte # 0.36 X10^3/ul (4.0); Lymphocyte % 6.9 % (19-41); Mean Corp Hgb Conc 30.8 g/gl (32-36); Mean Corpuscular Hgb 28.5 pg (27.0-32.0); Mean Corpuscular Volume 92.4 fL (81-99); Mean Platelet Vol. 8.4 fl (6.2-12.0); Monocyte# 0.79 X10^3/uL; Monocyte% 15.3 % (0-10); Neutrophil # 3.89 X10^3/uL (2.7-7.7); Neutrophil % 75.1 % (47-70); Platelet Count 168 K/mm3 (150-450); RBC Distribution Width CV 16.4 % (11.6-14.6); RBC Distribution Width SD 53.5 fl (35.1-43.9); Red Blood Count 3.16 M/mm3 (4.2-5.4); White Blood Count 5.2 K/mm3 (4.4-11.0)
[2018-09-04 06:08] LABS: Differential Indicated SCAN CRITERIA MET; POSITIVE COUNT NO; POSITIVE DIFFERENTIAL YES; POSITIVE MORPHOLOGY YES
[2018-09-04] MEDS: Ondansetron 4 MG/2 ML Vial IV (06:28)
[2018-09-04 06:37] LABS: AST(SGOT) 53 U/L (15-37); Alanine Aminotransfer ALT/SGPT 23 U/L (13-56); Albumin, Serum 2.3 g/dL (3.2-5.0); Alkaline Phosphatase 206 U/L (45-117); Anion Gap 13 (5-15); BUN 5 mg/dL (7-18); BUN/Creat Ratio 15.2 RATIO (10-20); Bilirubin, Direct 0.11 mg/dL (0.00-0.30); Calcium,Total 7.3 mg/dL (8.5-10.1); Chloride 106 mmol/L (98-107); Creatinine, Serum 0.33 mg/dL (0.55-1.02); EST Glomerular Filtration Rate 216 mL/min (>60); Est Glom Filt Rate - Afr Amer 261 mL/min (>60); Estimated Creatinine Clearance 155.98 ml/min; Globulin 3.7 g/dL (2.2-4.2); Glucose 52 mg/dL (74-106); Magnesium 1.9 mg/dL (1.6-2.6); Phosphorus 1.6 mg/dL (2.5-4.9); Potassium 4.1 mmol/L (3.5-5.1); Sodium Level 135 mmol/L (136-145)
[2018-09-04] MEDS: predniSONE 5 MG Tablet 7.5 MG PO (08:25)
[2018-09-04] MEDS: Levothyroxine 125 MCG Tablet 250 MCG PO (08:25)
[2018-09-04 08:29] LABS: Lactic Acid 0.7 mmol/L (0.4-2.0)
[2018-09-04 08:34] LABS: Partial Thromboplast Time 51.1 Seconds (24.1-36.2)
[2018-09-04 09:13] LABS: International Normalized Ratio 1.3
[2018-09-04] MEDS: APIXABAN 2.5 MG TABLET PO ×2 (09:57→21:19)
[2018-09-04] MEDS: Famotidine 20 MG Tablet PO ×2 (09:57→21:19)
[2018-09-04] MEDS: Senna Tablet 2 TABLET PO (09:57)
[2018-09-04] MEDS: Ensure Clear 120 ML Liquid PO (10:01)
--- NOTE | 2018-09-04 11:40 | PCM.PN.HOSP ---
Patient Problems: Active and Suspected Problems (Last Reviewed 09/03/18 @ 18:54 by William Lal MD) Nausea & vomiting (Acute) Hypokalemia (Acute) Dehydration (Acute) Subjective: She states that she is a significant amount of pain today, her pain is normally in the rectal area and is usually managed with her home pain regimen. Also she noted that she has been feeling hot and was found to have a fever greater than 101 she had blood cultures drawn overnight as well as started on an antibiotic. Her nausea vomiting has improved a little bit though she still does not feel he should be able to eat anything. Vitals/I&O's: Vital Signs Temp Pulse Resp BP Pulse Ox 100.0 F H 125 H 18 116/53 L 100 09/04/18 11:38 09/04/18 09:47 09/04/18 09:47 09/04/18 09:47 09/04/18 09:47 Oxygen Flow Rate (L/min) 2 Oxygen Delivery Method Room Air Weight: 7 lb 11 oz Body Mass Index (BMI) 20.4 Intake and Output for Last 24 Hours 09/02/18 09/03/18 09/04/18 23:59 23:59 23:59 Intake Total 447 / 447 2073 / 2073 Output Total 1632 / 1632 Balance 447 / 447 441 / 441 General: Alert, Oriented x3, Cooperative, - - Mild distress secondary to rectal pain HEENT: Atraumatic, EOMI, Normocephalic Oral: Moist Mucosa Neck: Supple, No JVD Lungs: Clear to auscultation, Normal air movement, No rhonchi, No wheeze, No rales Cardiovascular: Regular rate, Regular Rhythm, Normal S1, Normal S2, No murmurs Abdomen: Soft, Non Tender, Non-Distended, No Hepato-splenomegaly Extremities: No edema, Capillary Refill Less than 3 Seconds Skin: No rashes, No breakdown Neurological: Neuro grossly intact, Sensory exam intact to light touch and pain Psych/Mental Status: Normal Affect, Appropriate Microbiology Past 72 Hours 09/04/18 07:18 Mucosa - Nasopharyngeal Respiratory Panel (PCR) - Final Laboratory Results 09/03/18 16:40: WBC 5.8, RBC 3.48 L, Hgb 10.0 L, Hct 31.0 L, MCV 89.1, MCH 28.7, MCHC 32.3, RDW 16.4 H, RDW Differential 53.8 H, Plt Count 119 L, MPV 8.8, Immature Gran % (Auto) 0.200, Neut % (Auto) 83.7 H, Lymph % (Auto) 3.1 L, [place] % (Auto) 11.8 H, Eos % (Auto) 1.0, Baso % (Auto) 0.2, Absolute Neuts (auto) 4.8, Absolute Lymphs (auto) 0.18 L, Total Counted Not Reportable, Differential Comment SEE COMMENT, Platelet Estimate SLT DEC, Anisocytosis RARE 09/03/18 16:40: Sodium 133 L, Potassium 3.5, Chloride 100, Carbon Dioxide 23.0, Anion Gap 10, BUN 11, Creatinine 0.43 L, Estim Creat Clear Calc 116.50, Est GFR (MDRD) Af Amer 190, Est GFR (MDRD) Non-Af 157, BUN/Creatinine Ratio 25.5 H, Glucose 107 H, Calcium 8.0 L, Total Bilirubin 0.40, AST 47 H, ALT 21, Alkaline Phosphatase 183 H, Troponin I < 0.015, Total Protein 6.8, Albumin 2.7 L, Globulin 4.1, Albumin/Globulin Ratio 0.7 L 09/03/18 16:40: Lipase 49 L 09/03/18 19:15: Urine Color Yellow, Urine Clarity Clear, Urine pH 7.0, Ur Specific [place] 1.005, Urine Protein 15 H, Urine Glucose (UA) Normal, Urine Ketones 150 H, Urine Occult Blood 10 H, Urine Nitrite Negative, Urine Bilirubin Negative, Urine Urobilinogen Normal, Ur Leukocyte Esterase 100 H, Urine RBC 0 SEEN, Urine WBC 0-5 SEEN, Ur Squamous Epith Cells 0 SEEN, Urine Bacteria 0 SEEN, Urine Mucus 0 SEEN 09/04/18 05:35: WBC 5.2, RBC 3.16 L, Hgb 9.0 L, Hct 29.2 L, MCV 92.4, MCH 28.5, MCHC 30.8 L, RDW 16.4 H, RDW Differential 53.5 H, Plt Count 168, MPV 8.4, Immature Gran % (Auto) 0.200, Neut % (Auto) 75.1 H, Lymph % (Auto) 6.9 L, [place] % (Auto) 15.3 H, Eos % (Auto) 2.3, Baso % (Auto) 0.2, Absolute Neuts (auto) 3.9, Absolute Lymphs (auto) 0.36 L, Total Counted Not Reportable 09/04/18 05:35: Sodium 135 L, Potassium 4.1, Chloride 106, Carbon Dioxide 16.0 L, Anion Gap 13, BUN 5 L, Creatinine 0.33 L, Estim Creat Clear Calc 155.98, Est GFR (MDRD) Af Amer 261, Est GFR (MDRD) Non-Af 216, BUN/Creatinine Ratio 15.2, Glucose 52 L, Calcium 7.3 L, Phosphorus 1.6 L, Magnesium 1.9, Total Bilirubin 0.30, Direct Bilirubin 0.11, AST 53 H, ALT 23, Alkaline Phosphatase 206 H, Total Protein 6.0 L, Albumin 2.3 L, Globulin 3.7 09/04/18 07:40: PT 16.0 H, INR 1.3, APTT 51.1 H 09/04/18 07:40: Lactic Acid 0.7 Current Medications Acetaminophen (Tylenol) 500 mg PO Q6H PRN PRN Reason: PAIN Last Admin: 09/04/18 09:57 Dose: 500 mg Al Hydroxide/Mg Hydroxide (Mylanta Ii) 30 ml PO Q6H PRN PRN PRN Reason: Gastric Burning Albuterol Sulfate (Ventolin Aerosols) 2.5 mg INHALATION Q2H PRN PRN PRN Reason: Shortness of Breath/Wheezing Apixaban (Eliquis) 2.5 mg PO BID [facility] Last Admin: 09/04/18 09:57 Dose: 2.5 mg Famotidine (Pepcid) 20 mg PO BID [facility] Last Admin: 09/04/18 09:57 Dose: 20 mg Guaifenesin (Robitussin) 20 ml PO Q4H PRN PRN PRN Reason: COUGH Heparin Sodium (Beef Lung) () 50 units IV UD PRN PRN Reason: HEPARIN FLUSH Potassium Chloride/Sodium Chloride (Kcl 20meq In 0.45% Ns 1000ml) 1,000 mls @ 150 mls/hr IV .Q6H40M [facility] Last Admin: 09/04/18 09:45 Dose: 150 mls/hr Piperacillin Sod/Tazobactam (Sod 3.375 gm/ Sodium Chloride) 50 mls @ 12.5 mls/hr IV Q8 [facility] Last Admin: 09/04/18 07:31 Dose: 12.5 mls/hr Lactobacillus Acidophilus (Acidophilus) 1 tablet PO TID [facility] Last Admin: 09/04/18 08:25 Dose: 1 tablet Levothyroxine Sodium (Synthroid) 250 mcg PO DAILY@0600 [facility] Last Admin: 09/04/18 08:25 Dose: 250 mcg Magnesium Hydroxide (Milk Of Magnesia) 30 ml PO DAILY PRN PRN PRN Reason: Constipation Melatonin (Melatonin) 3 mg PO QHS PRN PRN PRN Reason: INSOMNIA Morphine Sulfate () 4 mg IV Q3H PRN PRN PRN Reason: Severe pain (7-1010) Last Admin: 09/04/18 11:32 Dose: 4 mg Nutritional Formula (Lactose Free) (Ensure Clear) 120 ml PO 4X/DAY [facility] Last Admin: 09/04/18 10:01 Dose: 120 ml Ondansetron HCl (Zofran) 8 mg IV Q8H PRN PRN PRN Reason: NAUSEA/VOMITING Oxycodone HCl (Oxyir) 5 mg PO Q4H PRN PRN PRN Reason: PAIN Last Admin: 09/03/18 22:56 Dose: 5 mg Prednisone () 7.5 mg PO DAILYCM [facility] Last Admin: 09/04/18 08:25 Dose: 7.5 mg Promethazine HCl (Phenergan) 25 mg IM Q6H PRN PRN PRN Reason: Breakthrough nausea/vomiting Last Admin: 09/04/18 00:19 Dose: 25 mg Senna (Senokot) 1 tablet PO BID [facility] Last Admin: 09/04/18 10:03 Dose: Not Given Senna (Senokot) 2 tablet PO DAILY [facility] Last Admin: 09/04/18 09:57 Dose: 2 tablet Sodium Chloride () 10 ml IV UD PRN PRN Reason: VAD FLUSH Last Admin: 09/04/18 11:33 Dose: 10 ml Medical Necessity - Tobacco Use Smoking Status: Never smoker Assessment/Plan All Active Problems (Last Reviewed 09/03/18 @ 18:54 by William Lal MD) Hyponatremia (Acute) Nausea & vomiting (Acute) Hypokalemia (Acute) Dehydration (Acute) 1. Intractable nausea and vomiting/metastatic melanoma with GI primary/dehydration/hyponatremia and hypokalemia/new onset fever -She is on Zofran 4 mg every 8 which will increase to 8 mg, will continue with the Phenergan -Tinea with IV fluids -Continue with morphine for pain control -He is doing immunotherapy with an oncologist in [place], she states that started in 2018 and she has not seen any significant improvement over the last year -I did discuss with her that hospice and palliative care are an option for her going forward if she would like to, I did recommend that she discuss this with her oncologist to get an idea as to whether or not there is any other treatments or if it is possible that the immunotherapy could still work. -Her sodium is now normal and her potassium is also normal -Blood cultures are pending because of the fever, respiratory panel was negative and will continue with Zosyn at the moment -If she significantly worsens or there is no improvement in her rectal pain will proceed with a CT abdomen and pelvis. 2. Hypothyroidism -Stable -Continue with Synthroid DVT: Suequis Code Visit OBSV E&M: [id number] Subsequent observation care L2
--- NOTE | 2018-09-04 11:45 | PN_ITS ---
Patient Problems: Active and Suspected Problems (Last Reviewed 09/03/18 @ 18:54 by William Lal MD) Nausea & vomiting (Acute) Hypokalemia (Acute) Dehydration (Acute) Subjective: She states that she is a significant amount of pain today, her pain is normally in the rectal area and is usually managed with her home pain regimen. Also she noted that she has been feeling hot and was found to have a fever greater than 101 she had blood cultures drawn overnight as well as started on an antibiotic. Her nausea vomiting has improved a little bit though she still does not feel he should be able to eat anything. Vitals/I&O's: Vital Signs Temp Pulse Resp BP Pulse Ox 100.0 F H 125 H 18 116/53 L 100 09/04/18 11:38 09/04/18 09:47 09/04/18 09:47 09/04/18 09:47 09/04/18 09:47 Oxygen Flow Rate (L/min) 2 Oxygen Delivery Method Room Air Weight: 7 lb 11 oz Body Mass Index (BMI) 20.4 Intake and Output for Last 24 Hours 09/02/18 09/03/18 09/04/18 23:59 23:59 23:59 Intake Total 447 / 447 2073 / 2073 Output Total 1632 / 1632 Balance 447 / 447 441 / 441 General: Alert, Oriented x3, Cooperative, - - Mild distress secondary to rectal pain HEENT: Atraumatic, EOMI, Normocephalic Oral: Moist Mucosa Neck: Supple, No JVD Lungs: Clear to auscultation, Normal air movement, No rhonchi, No wheeze, No rales Cardiovascular: Regular rate, Regular Rhythm, Normal S1, Normal S2, No murmurs Abdomen: Soft, Non Tender, Non-Distended, No Hepato-splenomegaly Extremities: No edema, Capillary Refill Less than 3 Seconds Skin: No rashes, No breakdown Neurological: Neuro grossly intact, Sensory exam intact to light touch and pain Psych/Mental Status: Normal Affect, Appropriate Microbiology Past 72 Hours 09/04/18 07:18 Mucosa - Nasopharyngeal Respiratory Panel (PCR) - Final Laboratory Results 09/03/18 16:40: WBC 5.8, RBC 3.48 L, Hgb 10.0 L, Hct 31.0 L, MCV 89.1, MCH 28.7, MCHC 32.3, RDW 16.4 H, RDW Differential 53.8 H, Plt Count 119 L, MPV 8.8, Immature Gran % (Auto) 0.200, Neut % (Auto) 83.7 H, Lymph % (Auto) 3.1 L, [place] % (Auto) 11.8 H, Eos % (Auto) 1.0, Baso % (Auto) 0.2, Absolute Neuts (auto) 4.8, Absolute Lymphs (auto) 0.18 L, Total Counted Not Reportable, Differential Comment SEE COMMENT, Platelet Estimate SLT DEC, Anisocytosis RARE 09/03/18 16:40: Sodium 133 L, Potassium 3.5, Chloride 100, Carbon Dioxide 23.0, Anion Gap 10, BUN 11, Creatinine 0.43 L, Estim Creat Clear Calc 116.50, Est GFR (MDRD) Af Amer 190, Est GFR (MDRD) Non-Af 157, BUN/Creatinine Ratio 25.5 H, Glucose 107 H, Calcium 8.0 L, Total Bilirubin 0.40, AST 47 H, ALT 21, Alkaline Phosphatase 183 H, Troponin I < 0.015, Total Protein 6.8, Albumin 2.7 L, Globulin 4.1, Albumin/Globulin Ratio 0.7 L 09/03/18 16:40: Lipase 49 L 09/03/18 19:15: Urine Color Yellow, Urine Clarity Clear, Urine pH 7.0, Ur Specific [place] 1.005, Urine Protein 15 H, Urine Glucose (UA) Normal, Urine Ketones 150 H, Urine Occult Blood 10 H, Urine Nitrite Negative, Urine Bilirubin Negative, Urine Urobilinogen Normal, Ur Leukocyte Esterase 100 H, Urine RBC 0 SEEN, Urine WBC 0-5 SEEN, Ur Squamous Epith Cells 0 SEEN, Urine Bacteria 0 SEEN, Urine Mucus 0 SEEN 09/04/18 05:35: WBC 5.2, RBC 3.16 L, Hgb 9.0 L, Hct 29.2 L, MCV 92.4, MCH 28.5, MCHC 30.8 L, RDW 16.4 H, RDW Differential 53.5 H, Plt Count 168, MPV 8.4, Immature Gran % (Auto) 0.200, Neut % (Auto) 75.1 H, Lymph % (Auto) 6.9 L, [place] % (Auto) 15.3 H, Eos % (Auto) 2.3, Baso % (Auto) 0.2, Absolute Neuts (auto) 3.9, Absolute Lymphs (auto) 0.36 L, Total Counted Not Reportable 09/04/18 05:35: Sodium 135 L, Potassium 4.1, Chloride 106, Carbon Dioxide 16.0 L , Anion Gap 13, BUN 5 L, Creatinine 0.33 L, Estim Creat Clear Calc 155.98, Est GFR (MDRD) Af Amer 261, Est GFR (MDRD) Non-Af 216, BUN/Creatinine Ratio 15.2, Glucose 52 L, Calcium 7.3 L, Phosphorus 1.6 L, Magnesium 1.9, Total Bilirubin 0.30, Direct Bilirubin 0.11, AST 53 H, ALT 23, Alkaline Phosphatase 206 H, Total Protein 6.0 L, Albumin 2.3 L, Globulin 3.7 09/04/18 07:40: PT 16.0 H, INR 1.3, APTT 51.1 H 09/04/18 07:40: Lactic Acid 0.7 Current Medications Acetaminophen (Tylenol) 500 mg PO Q6H PRN PRN Reason: PAIN Last Admin: 09/04/18 09:57 Dose: 500 mg Al Hydroxide/Mg Hydroxide (Mylanta Ii) 30 ml PO Q6H PRN PRN PRN Reason: Gastric Burning Albuterol Sulfate (Ventolin Aerosols) 2.5 mg INHALATION Q2H PRN PRN PRN Reason: Shortness of Breath/Wheezing Apixaban (Eliquis) 2.5 mg PO BID [facility] Last Admin: 09/04/18 09:57 Dose: 2.5 mg Famotidine (Pepcid) 20 mg PO BID [facility] Last Admin: 09/04/18 09:57 Dose: 20 mg Guaifenesin (Robitussin) 20 ml PO Q4H PRN PRN PRN Reason: COUGH Heparin Sodium (Beef Lung) () 50 units IV UD PRN PRN Reason: HEPARIN FLUSH Potassium Chloride/Sodium Chloride (Kcl 20meq In 0.45% Ns 1000ml) 1,000 mls @ 150 mls/hr IV .Q6H40M [facility] Last Admin: 09/04/18 09:45 Dose: 150 mls/hr Piperacillin Sod/Tazobactam (Sod 3.375 gm/ Sodium Chloride) 50 mls @ 12.5 mls/hr IV Q8 [facility] Last Admin: 09/04/18 07:31 Dose: 12.5 mls/hr Lactobacillus Acidophilus (Acidophilus) 1 tablet PO TID [facility] Last Admin: 09/04/18 08:25 Dose: 1 tablet Levothyroxine Sodium (Synthroid) 250 mcg PO DAILY@0600 [facility] Last Admin: 09/04/18 08:25 Dose: 250 mcg Magnesium Hydroxide (Milk Of Magnesia) 30 ml PO DAILY PRN PRN PRN Reason: Constipation Melatonin (Melatonin) 3 mg PO QHS PRN PRN PRN Reason: INSOMNIA Morphine Sulfate () 4 mg IV Q3H PRN PRN PRN Reason: Severe pain (7-1010) Last Admin: 09/04/18 11:32 Dose: 4 mg Nutritional Formula (Lactose Free) (Ensure Clear) 120 ml PO 4X/DAY [facility] Last Admin: 09/04/18 10:01 Dose: 120 ml Ondansetron HCl (Zofran) 8 mg IV Q8H PRN PRN PRN Reason: NAUSEA/VOMITING Oxycodone HCl (Oxyir) 5 mg PO Q4H PRN PRN PRN Reason: PAIN Last Admin: 09/03/18 22:56 Dose: 5 mg Prednisone () 7.5 mg PO DAILYCM [facility] Last Admin: 09/04/18 08:25 Dose: 7.5 mg Promethazine HCl (Phenergan) 25 mg IM Q6H PRN PRN PRN Reason: Breakthrough nausea/vomiting Last Admin: 09/04/18 00:19 Dose: 25 mg Senna (Senokot) 1 tablet PO BID [facility] Last Admin: 09/04/18 10:03 Dose: Not Given Senna (Senokot) 2 tablet PO DAILY [facility] Last Admin: 09/04/18 09:57 Dose: 2 tablet Sodium Chloride () 10 ml IV UD PRN PRN Reason: VAD FLUSH Last Admin: 09/04/18 11:33 Dose: 10 ml Medical Necessity - Tobacco Use Smoking Status: Never smoker Assessment/Plan All Active Problems (Last Reviewed 09/03/18 @ 18:54 by William Lal MD) Hyponatremia (Acute) Nausea & vomiting (Acute) Hypokalemia (Acute) Dehydration (Acute) 1. Intractable nausea and vomiting/metastatic melanoma with GI primary/dehydration/hyponatremia and hypokalemia/new onset fever -She is on Zofran 4 mg every 8 which will increase to 8 mg, will continue with t anant Phenergan -Tinea with IV fluids -Continue with morphine for pain control -He is doing immunotherapy with an oncologist in [place], she states that started in 2018 and she has not seen any significant improvement over the last year -I did discuss with her that hospice and palliative care are an option for her going forward if she would like to, I did recommend that she discuss this with her oncologist to get an idea as to whether or not there is any other treatments or if it is possible that the immunotherapy could still work. -Her sodium is now normal and her potassium is also normal -Blood cultures are pending because of the fever, respiratory panel was negative and will continue with Zosyn at the moment -If she significantly worsens or there is no improvement in her rectal pain will proceed with a CT abdomen and pelvis. 2. Hypothyroidism -Stable -Continue with Synthroid DVT: Suequis Code Visit OBSV E&M: [id number] Subsequent observation care L2
[2018-09-04] MEDS: oxyCODONE 5 MG Tablet PO (15:48)
[2018-09-04] MEDS: oxyCODONE 5 MG Tablet 7.5 MG PO (20:55)
[2018-09-04] MEDS: Senna Tablet 1 TABLET PO (21:19)
[2018-09-05] MEDS: Morphine 4 MG/ML Syringe IV ×6 (00:53→18:15)
[2018-09-05 02:15] VITALS: BP 121/65; PULSE 96; RESP 18; TEMP 36.8; O2SAT 98
[2018-09-05] MEDS: oxyCODONE 5 MG Tablet 7.5 MG PO ×4 (02:16→18:01)
--- NOTE | 2018-09-05 05:55 | CT_ITS ---
STUDY: CT ABDOMEN AND PELVIS WITH CONTRAST REASON FOR EXAM: Female, 62 years old. Rectal pain. Fever patient has history of neoplasm. RADIATION DOSAGE (If Supplied By Facility): CTDIvol = ( 7.54 ) mGy, DLP = ( 398.22 ) mGycm TECHNIQUE: Transaxial images were obtained from the dome of the diaphragm to the symphysis pubis without oral contrast. 100 IV Isovue 300 was administered. Sagittal and coronal images were reconstructed. Individualized dose optimization techniques were used for this CT. COMPARISON: 08/04/2018 FINDINGS: To metastatic lesions are seen largest measures 6.2 x 4 cm is in the right lung lower lobe The visualized portions of the heart are within normal limits. Normal liver. Normal gallbladder and extrahepatic biliary system. Normal spleen. Normal pancreas. Normal bilateral adrenal glands. Normal right kidney. Normal left kidney. Normal visualized stomach. Normal small intestine. There is left lower quadrant colostomy The appendix is visualized and appears normal. Normal abdominal aorta. Normal inferior vena cava. Multiple enlarged retroperitoneal and left external iliac and left internal iliac lymph nodes are noted most of these lymph nodes are stable since the previous study. One retroperitoneal lymph node has decreased in size it measured previously 2.7 x 2.0 cm now measures 1.9 x 1.6 cm axial image #50. Normal urinary bladder. The uterus and ovaries are atrophic. There is enhancing lesion in the uterus measures 1 cm most likely represent a fibroid. Normal abdominal wall. Stable metastatic lesions in the L2 and L4 vertebra and left lower sacrum. There is increased attenuation in the upper segment of the coccyx may represent a metastatic lesion. CT/Abdomen/Pelvis W IV Cont ONLY IMPRESSION: Stable metastatic lesions in the L2 and L4 vertebra and left lower sacrum. Metastatic lesion in the upper part of the coccyx may explain patient's symptoms. Multiple enlarged retroperitoneal and left external iliac and left internal iliac lymph nodes are noted most of these lymph nodes are stable since the previous study. One retroperitoneal lymph node has decreased in size it measured previously 2.7 x 2.0 cm now measures 1.9 x 1.6 cm axial image #50. Metastatic lesions in the right lung base Electronically Signed: Franki Headley, at 7:57 EDT Tel , Service support ,
[2018-09-05 06:05] LABS: Absolute Lymphocyte Count 0.65 X10^3/ul (0.83-4.51); Absolute Neutrophil Count 4.4 X10^3/uL (2.0-7.7); Eosinophil# 0.13 X10^3/uL; Eosinophils% 2.2 % (0-5); Hematocrit 27.2 % (37-47); Hemoglobin 8.7 g/dl (12.0-15.0); Lymphocyte # 0.65 X10^3/ul (4.0); Lymphocyte % 11.2 % (19-41); Mean Corpuscular Hgb 28.9 pg (27.0-32.0); Mean Corpuscular Volume 90.4 fL (81-99); Mean Platelet Vol. 8.3 fl (6.2-12.0); Monocyte# 0.62 X10^3/uL; Monocyte% 10.7 % (0-10); Neutrophil # 4.39 X10^3/uL (2.7-7.7); Neutrophil % 75.7 % (47-70); Platelet Count 193 K/mm3 (150-450); RBC Distribution Width CV 16.7 % (11.6-14.6); RBC Distribution Width SD 55.1 fl (35.1-43.9); Red Blood Count 3.01 M/mm3 (4.2-5.4); White Blood Count 5.8 K/mm3 (4.4-11.0)
[2018-09-05 06:16] LABS: POSITIVE COUNT NO; POSITIVE DIFFERENTIAL NO; POSITIVE MORPHOLOGY NO
[2018-09-05] MEDS: 0.9% NaCl VAD Flush 10 ML IV ×5 (06:17→15:44)
[2018-09-05] MEDS: Levothyroxine 125 MCG Tablet 250 MCG PO (06:23)
[2018-09-05 06:28] LABS: Anion Gap 9 (5-15); BUN 4 mg/dL (7-18); BUN/Creat Ratio 12.5 RATIO (10-20); Calcium,Total 7.6 mg/dL (8.5-10.1); Chloride 110 mmol/L (98-107); Creatinine, Serum 0.32 mg/dL (0.55-1.02); EST Glomerular Filtration Rate 223 mL/min (>60); Est Glom Filt Rate - Afr Amer 269 mL/min (>60); Estimated Creatinine Clearance 155.97 ml/min; Glucose 83 mg/dL (74-106); Potassium 3.8 mmol/L (3.5-5.1); Sodium Level 138 mmol/L (136-145)
[2018-09-05 07:11] VITALS: O2SAT 97
--- NOTE | 2018-09-05 09:15 | PCM.PN.HOSP ---
Patient Problems: Active and Suspected Problems (Last Reviewed 09/03/18 @ 18:54 by William Lal MD) Nausea & vomiting (Acute) Hypokalemia (Acute) Dehydration (Acute) Subjective: Doing much better today, her pain is better controlled with the oxycodone 7.[address] scan was unremarkable for any intra-abdominal pathology other than her metastatic disease which is grossly unchanged. Vitals/I&O's: Vital Signs Temp Pulse Resp BP Pulse Ox 98.3 F 96 18 121/65 H 97 09/05/18 02:15 09/05/18 02:15 09/05/18 02:15 09/05/18 02:15 09/05/18 07:11 Oxygen Flow Rate (L/min) 2 Oxygen Delivery Method Room Air Weight: 119 lb 7.849 oz Body Mass Index (BMI) 20.4 Intake and Output for Last 24 Hours 09/03/18 09/04/18 09/05/18 23:59 23:59 23:59 Intake Total 447 / 447 4278 / 4278 1156 / 1156 Output Total 4732 / 4732 Balance 447 / 447 -454 / -454 1156 / 1156 General: Alert, Oriented x3, Cooperative, - - Mild distress secondary to rectal pain HEENT: Atraumatic, EOMI, Normocephalic Oral: Moist Mucosa Neck: Supple, No JVD Lungs: Clear to auscultation, Normal air movement, No rhonchi, No wheeze, No rales Cardiovascular: Regular rate, Regular Rhythm, Normal S1, Normal S2, No murmurs Abdomen: Soft, Non Tender, Non-Distended, No Hepato-splenomegaly, ostomy in place Extremities: No edema, Capillary Refill Less than 3 Seconds Skin: No rashes, No breakdown Neurological: Neuro grossly intact, Sensory exam intact to light touch and pain Psych/Mental Status: Normal Affect, Appropriate Microbiology Past 72 Hours 09/04/18 11:16 Stool Enteric Bacteriology - Final 09/04/18 11:16 Stool C. difficile DNA Amplification - Final 09/04/18 07:18 Mucosa - Nasopharyngeal Respiratory Panel (PCR) - Final Laboratory Results 09/05/18 05:37: WBC 5.8, RBC 3.01 L, Hgb 8.7 L, Hct 27.2 L, MCV 90.4, MCH 28.9, MCHC 32.0, RDW 16.7 H, RDW Differential 55.1 H, Plt Count 193, MPV 8.3, Immature Gran % (Auto) 0.200, Neut % (Auto) 75.7 H, Lymph % (Auto) 11.2 L, [place] % (Auto) 10.7 H, Eos % (Auto) 2.2, Baso % (Auto) 0.0, Absolute Neuts (auto) 4.4, Absolute Lymphs (auto) 0.65 L, Total Counted Not Reportable 09/05/18 05:37: Sodium 138, Potassium 3.8, Chloride 110 H, Carbon Dioxide 19.0 L, Anion Gap 9, BUN 4 L, Creatinine 0.32 L, Estim Creat Clear Calc 155.97, Est GFR (MDRD) Af Amer 269, Est GFR (MDRD) Non-Af 223, BUN/Creatinine Ratio 12.5, Glucose 83, Calcium 7.6 L Current Medications Acetaminophen (Tylenol) 500 mg PO Q6H PRN PRN Reason: PAIN Last Admin: 09/04/18 09:57 Dose: 500 mg Al Hydroxide/Mg Hydroxide (Mylanta Ii) 30 ml PO Q6H PRN PRN PRN Reason: Gastric Burning Albuterol Sulfate (Ventolin Aerosols) 2.5 mg INHALATION Q2H PRN PRN PRN Reason: Shortness of Breath/Wheezing Apixaban (Eliquis) 2.5 mg PO BID [facility] Last Admin: 09/04/18 21:19 Dose: 2.5 mg Famotidine (Pepcid) 20 mg PO BID [facility] Last Admin: 09/04/18 21:19 Dose: 20 mg Guaifenesin (Robitussin) 20 ml PO Q4H PRN PRN PRN Reason: COUGH Heparin Sodium (Beef Lung) () 50 units IV UD PRN PRN Reason: HEPARIN FLUSH Potassium Chloride/Sodium Chloride (Kcl 20meq In 0.45% Ns 1000ml) 1,000 mls @ 150 mls/hr IV .Q6H40M [facility] Last Admin: 09/05/18 06:51 Dose: 150 mls/hr Piperacillin Sod/Tazobactam (Sod 3.375 gm/ Sodium Chloride) 50 mls @ 12.5 mls/hr IV Q8 [facility] Last Admin: 09/05/18 06:16 Dose: 12.5 mls/hr Lactobacillus Acidophilus (Acidophilus) 1 tablet PO TID [facility] Last Admin: 09/05/18 06:23 Dose: 1 tablet Levothyroxine Sodium (Synthroid) 250 mcg PO DAILY@0600 [facility] Last Admin: 09/05/18 06:23 Dose: 250 mcg Magnesium Hydroxide (Milk Of Magnesia) 30 ml PO DAILY PRN PRN PRN Reason: Constipation Melatonin (Melatonin) 3 mg PO QHS PRN PRN PRN Reason: INSOMNIA Morphine Sulfate () 4 mg IV Q2H PRN PRN PRN Reason: Severe pain (7-10/10) Last Admin: 09/05/18 06:16 Dose: 4 mg Nutritional Formula (Lactose Free) (Ensure Clear) 120 ml PO 4X/DAY [facility] Last Admin: 09/04/18 21:20 Dose: Not Given Ondansetron HCl (Zofran) 8 mg IV Q8H PRN PRN PRN Reason: NAUSEA/VOMITING Oxycodone HCl (Oxyir) 7.5 mg PO Q4H PRN PRN PRN Reason: PAIN Last Admin: 09/05/18 02:16 Dose: 7.5 mg Prednisone () 7.5 mg PO DAILYCM [facility] Last Admin: 09/04/18 08:25 Dose: 7.5 mg Promethazine HCl (Phenergan) 25 mg IM Q6H PRN PRN PRN Reason: Breakthrough nausea/vomiting Last Admin: 09/04/18 00:19 Dose: 25 mg Senna (Senokot) 1 tablet PO BID [facility] Last Admin: 09/04/18 21:19 Dose: 1 tablet Senna (Senokot) 2 tablet PO DAILY [facility] Last Admin: 09/04/18 09:57 Dose: 2 tablet Sodium Chloride () 10 ml IV UD PRN PRN Reason: VAD FLUSH Last Admin: 09/05/18 06:25 Dose: 10 ml Medical Necessity - Tobacco Use Smoking Status: Never smoker Assessment/Plan All Active Problems (Last Reviewed 09/03/18 @ 18:54 by William Lal MD) Hyponatremia (Acute) Nausea & vomiting (Acute) Hypokalemia (Acute) Dehydration (Acute) 1. Intractable nausea and vomiting/metastatic melanoma with GI primary/dehydration/hyponatremia and hypokalemia/new onset fever -She is on Zofran 4 mg every 8 which will increase to 8 mg, will continue with the Phenergan -Continue with IV fluids -Continue with morphine for pain control -He is doing immunotherapy with an oncologist in [place], she states that started in 2018 and she has not seen any significant improvement over the last year -I did discuss with her and her family that hospice is an option at this point. The CT scan did not show anything intra-abdominal to explain her pain other than her mets. Per report she has completed her immunotherapy trial and it does not appear to have been significantly successful with her metastatic disease that is still present. Spent 25 minutes discussing her advanced care planning and she would like to speak with hospice today. -Her sodium is now normal and her potassium is also normal -Blood cultures are pending because of the fever, respiratory panel was negative and will continue with Zosyn at the moment -She feels less nauseated today and was tolerating a clear liquid diet, will advance to full's to give her that option 2. Hypothyroidism -Stable -Continue with Synthroid DVT: Eliquis Code Visit OBSV E&M: 33421 Subsequent observation care L2
--- NOTE | 2018-09-05 09:25 | PN_ITS ---
Patient Problems: Active and Suspected Problems (Last Reviewed 09/03/18 @ 18:54 by William Lal MD) Nausea & vomiting (Acute) Hypokalemia (Acute) Dehydration (Acute) Subjective: Doing much better today, her pain is better controlled with the oxycodone 7.[address] scan was unremarkable for any intra-abdominal pathology other than her metastatic disease which is grossly unchanged. Vitals/I&O's: Vital Signs Temp Pulse Resp BP Pulse Ox 98.3 F 96 18 121/65 H 97 09/05/18 02:15 09/05/18 02:15 09/05/18 02:15 09/05/18 02:15 09/05/18 07:11 Oxygen Flow Rate (L/min) 2 Oxygen Delivery Method Room Air Weight: 119 lb 7.849 oz Body Mass Index (BMI) 20.4 Intake and Output for Last 24 Hours 09/03/18 09/04/18 09/05/18 23:59 23:59 23:59 Intake Total 447 / 447 4278 / 4278 1156 / 1156 Output Total 4732 / 4732 Balance 447 / 447 -454 / -454 1156 / 1156 General: Alert, Oriented x3, Cooperative, - - Mild distress secondary to rectal pain HEENT: Atraumatic, EOMI, Normocephalic Oral: Moist Mucosa Neck: Supple, No JVD Lungs: Clear to auscultation, Normal air movement, No rhonchi, No wheeze, No rales Cardiovascular: Regular rate, Regular Rhythm, Normal S1, Normal S2, No murmurs Abdomen: Soft, Non Tender, Non-Distended, No Hepato-splenomegaly, ostomy in place Extremities: No edema, Capillary Refill Less than 3 Seconds Skin: No rashes, No breakdown Neurological: Neuro grossly intact, Sensory exam intact to light touch and pain Psych/Mental Status: Normal Affect, Appropriate Microbiology Past 72 Hours 09/04/18 11:16 Stool Enteric Bacteriology - Final 09/04/18 11:16 Stool C. difficile DNA Amplification - Final 09/04/18 07:18 Mucosa - Nasopharyngeal Respiratory Panel (PCR) - Final Laboratory Results 09/05/18 05:37: WBC 5.8, RBC 3.01 L, Hgb 8.7 L, Hct 27.2 L, MCV 90.4, MCH 28.9, MCHC 32.0, RDW 16.7 H, RDW Differential 55.1 H, Plt Count 193, MPV 8.3, Immature Gran % (Auto) 0.200, Neut % (Auto) 75.7 H, Lymph % (Auto) 11.2 L, [place] % (Auto) 10.7 H, Eos % (Auto) 2.2, Baso % (Auto) 0.0, Absolute Neuts (auto) 4.4, Absolute Lymphs (auto) 0.65 L, Total Counted Not Reportable 09/05/18 05:37: Sodium 138, Potassium 3.8, Chloride 110 H, Carbon Dioxide 19.0 L , Anion Gap 9, BUN 4 L, Creatinine 0.32 L, Estim Creat Clear Calc 155.97, Est GFR (MDRD) Af Amer 269, Est GFR (MDRD) Non-Af 223, BUN/Creatinine Ratio 12.5, Glucose 83, Calcium 7.6 L Current Medications Acetaminophen (Tylenol) 500 mg PO Q6H PRN PRN Reason: PAIN Last Admin: 09/04/18 09:57 Dose: 500 mg Al Hydroxide/Mg Hydroxide (Mylanta Ii) 30 ml PO Q6H PRN PRN PRN Reason: Gastric Burning Albuterol Sulfate (Ventolin Aerosols) 2.5 mg INHALATION Q2H PRN PRN PRN Reason: Shortness of Breath/Wheezing Apixaban (Eliquis) 2.5 mg PO BID [facility] Last Admin: 09/04/18 21:19 Dose: 2.5 mg Famotidine (Pepcid) 20 mg PO BID [facility] Last Admin: 09/04/18 21:19 Dose: 20 mg Guaifenesin (Robitussin) 20 ml PO Q4H PRN PRN PRN Reason: COUGH Heparin Sodium (Beef Lung) () 50 units IV UD PRN PRN Reason: HEPARIN FLUSH Potassium Chloride/Sodium Chloride (Kcl 20meq In 0.45% Ns 1000ml) 1,000 mls @ 150 mls/hr IV .Q6H40M [facility] Last Admin: 09/05/18 06:51 Dose: 150 mls/hr Piperacillin Sod/Tazobactam (Sod 3.375 gm/ Sodium Chloride) 50 mls @ 12.5 mls/hr IV Q8 [facility] Last Admin: 09/05/18 06:16 Dose: 12.5 mls/hr Lactobacillus Acidophilus (Acidophilus) 1 tablet PO TID [facility] Last Admin: 09/05/18 06:23 Dose: 1 tablet Levothyroxine Sodium (Synthroid) 250 mcg PO DAILY@0600 [facility] Last Admin: 09/05/18 06:23 Dose: 250 mcg Magnesium Hydroxide (Milk Of Magnesia) 30 ml PO DAILY PRN PRN PRN Reason: Constipation Melatonin (Melatonin) 3 mg PO QHS PRN PRN PRN Reason: INSOMNIA Morphine Sulfate () 4 mg IV Q2H PRN PRN PRN Reason: Severe pain (7-10/10) Last Admin: 09/05/18 06:16 Dose: 4 mg Nutritional Formula (Lactose Free) (Ensure Clear) 120 ml PO 4X/DAY [facility] Last Admin: 09/04/18 21:20 Dose: Not Given Ondansetron HCl (Zofran) 8 mg IV Q8H PRN PRN PRN Reason: NAUSEA/VOMITING Oxycodone HCl (Oxyir) 7.5 mg PO Q4H PRN PRN PRN Reason: PAIN Last Admin: 09/05/18 02:16 Dose: 7.5 mg Prednisone () 7.5 mg PO DAILYCM [facility] Last Admin: 09/04/18 08:25 Dose: 7.5 mg Promethazine HCl (Phenergan) 25 mg IM Q6H PRN PRN PRN Reason: Breakthrough nausea/vomiting Last Admin: 09/04/18 00:19 Dose: 25 mg Senna (Senokot) 1 tablet PO BID [facility] Last Admin: 09/04/18 21:19 Dose: 1 tablet Senna (Senokot) 2 tablet PO DAILY [facility] Last Admin: 09/04/18 09:57 Dose: 2 tablet Sodium Chloride () 10 ml IV UD PRN PRN Reason: VAD FLUSH Last Admin: 09/05/18 06:25 Dose: 10 ml Medical Necessity - Tobacco Use Smoking Status: Never smoker Assessment/Plan All Active Problems (Last Reviewed 09/03/18 @ 18:54 by William Lal MD) Hyponatremia (Acute) Nausea & vomiting (Acute) Hypokalemia (Acute) Dehydration (Acute) 1. Intractable nausea and vomiting/metastatic melanoma with GI primary/dehydration/hyponatremia and hypokalemia/new onset fever -She is on Zofran 4 mg every 8 which will increase to 8 mg, will continue with the Phenergan -Continue with IV fluids -Continue with morphine for pain control -He is doing immunotherapy with an oncologist in [place], she states that started in 2018 and she has not seen any significant improvement over the last year -I did discuss with her and her family that hospice is an option at this point. The CT scan did not show anything intra-abdominal to explain her pain other than her mets. Per report she has completed her immunotherapy trial and it does not appear to have been significantly successful with her metastatic disease that is still present. Spent 25 minutes discussing her advanced care planning and she would like to speak with hospice today. -Her sodium is now normal and her potassium is also normal -Blood cultures are pending because of the fever, respiratory panel was negative and will continue with Zosyn at the moment -She feels less nauseated today and was tolerating a clear liquid diet, will advance to full's to give her that option 2. Hypothyroidism -Stable -Continue with Synthroid DVT: Eliquis Code Visit OBSV E&M: [id number] Subsequent observation care L2
[2018-09-05] MEDS: Senna Tablet 1 TABLET PO (09:36)
[2018-09-05] MEDS: APIXABAN 2.5 MG TABLET PO (09:37)
[2018-09-05] MEDS: Famotidine 20 MG Tablet PO (09:38)
[2018-09-05] MEDS: predniSONE 5 MG Tablet 7.5 MG PO (09:38)
[2018-09-05 09:45] VITALS: BP 113/58; PULSE 116; RESP 22; TEMP 37; O2SAT 98
[2018-09-05] MEDS: Ondansetron 4 MG/2 ML Vial 8 MG IV (09:52)
--- NOTE | 2018-09-05 15:25 | DCINST_ITS ---
- Discharge Diagnoses Current Active Problems: Current Active and Chronic Problems (Last Reviewed 09/03/18 @ 18:54 by William Lal MD) Nausea & vomiting (Acute) Hypokalemia (Acute) Dehydration (Acute) You will use the following diet at home:: Regular Your food should be the consistency of: Regular Your liquids should be the consistency of: Regular/Thin Allergies/Adverse Reactions: Allergies No Known Allergies Allergy (Verified 09/03/18 16:01) Medications to take at Discharge acetaminophen 500 mg tablet 500 mg PO Q4H PRN 08/16/18 apixaban 2.5 mg tablet 2.5 mg PO DAILY 08/16/18 levothyroxine 125 mcg tablet 250 mcg PO DAILY@0600 tab 08/16/18 prednisone 2.5 mg tablet 7.5 mg PO DAILY 08/16/18 Ondansetron [Zofran Odt] 8 mg PO Q6H PRN PRN 09/03/18 Senna [Senokot] 2 tablet PO DAILY 09/03/18 Ensure Clear 120 ml PO 4X/DAY liquid 09/05/18 Oxycodone [Oxyir] 7.5 mg PO Q4H PRN PRN tablet 09/05/18 Primary Care Physician: Jj Holliday MD [Primary Care Provider] - Test Results: Test results from this visit will be discussed in further detail at your follow- up appointment, if applicable.
--- NOTE | 2018-09-05 15:25 | PCM.DC.SUM ---
Discharge Date and Diagnosis - Problem List Patient Problems: Active and Suspected Problems (Last Reviewed 09/03/18 @ 18:54 by William Lal MD) Nausea & vomiting (Acute) Hypokalemia (Acute) Dehydration (Acute) Date of Admission: 09/03/18 Date of Discharge: 09/05/18 - Primary Discharge Diagnosis Active and Suspected Problems (Last Reviewed 09/03/18 @ 18:54 by William Lal MD) Nausea & vomiting (Acute) Hypokalemia (Acute) Dehydration (Acute) - Secondary Discharge Diagnosis Chronic Problems (Last Reviewed 09/03/18 @ 18:54 by William Lal MD) Urinary retention (Chronic) Malignant neoplasm of colorectal area with metastasis (Chronic) Chronic constipation (Chronic) Regional lymph node metastasis present (Chronic) Primary malignant melanoma of gastrointestinal tract (Chronic) Hospital Course and Treatment Imaging Results: CT Brain: IMPRESSION: Small scalp nodule of the left parietal region which may represent a pilar cyst. The study is otherwise unremarkable. CTA Chest: IMPRESSION: There is no evidence of pulmonary embolism or aortic dissection. There is extensive hilar and mediastinal adenopathy, significantly worsened from the previous study. There are numerous bilateral pulmonary nodules which have overall decreased in number from the previous study, but many of the remaining nodules have significantly increased in size in the interval. There is a large pleural-based mass in the lateral right lower hemithorax measuring 5.2 x 3.6 x 3.7 cm consistent with metastatic lesion, which has significantly increased in size in the interval. CT Abd/Pelvis: IMPRESSION: Stable metastatic lesions in the L2 and L4 vertebra and left lower sacrum. Metastatic lesion in the upper part of the coccyx may explain patient's symptoms. Multiple enlarged retroperitoneal and left external iliac and left internal iliac lymph nodes are noted most of these lymph nodes are stable since the previous study. One retroperitoneal lymph node has decreased in size it measured previously 2.7 x 2.0 cm now measures 1.9 x 1.6 cm axial image #50. Metastatic lesions in the right lung base Consults: Hospice Operations: None Procedures: None Summary of Care Provided: Per HPI: The patient is a 62 year old F past medical history significant for primary malignant melanoma involving the GI tract currently with mets to the spine spleen as well as lungs who recently completed radiation therapy and is now on clinical trials with an immunotherapy presented with intractable nausea and vomiting. Patient reports 2-day history of nausea and vomiting and inability to keep anything down. She also did complain of progressive generalized weakness. She suspected she was dehydrated and subsequently presented to the ED. In the emergency department CT of the head with and without contrast was negative for any mets to the brain. CT of the lungs demonstrated metastatic lesions. Patient was admitted to a regular nursing floor for symptomatic management of her intractable nausea and vomiting Hospital Course: 1. 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 She was being managed in a immunotherapy trial in [place]. She states that she has completed all aspects of the trial however has not had a significant improvement in burden of disease. She presented to the hospital with nausea and vomiting and unable to eat anything for the last 2 to [address] scan of her chest showed significant burden of disease but was otherwise unremarkable. A CT scan of her abdomen and pelvis was obtained when she developed fever and was started on Zosyn. CT scan of her abdomen and pelvis did not demonstrate an infectious source and her cultures have all been negative so far. Her fevers resolved with the antibiotics, and I discussed with the family that if they would like to proceed with oral Augmentin for 7 more days that would not be unreasonable, though we have no source. Her pain management was changed and she was given the oxycodone that she had been prescribed as an inpatient and had improvement in her pain control. On the day of discharge she seemed much more awake and alert, and the 7.5 mg of oxycodone seem to be helping her pain while here. She has continued to have some nausea and her Zofran was increased from 4 mg to 8 mg 3 times daily. She did not want the Phenergan which was given IM. She was tolerating clear liquid and was advanced to a full liquid diet which she was able to eat a few things without having any significant nausea or emesis. She has been continued on IV fluids and her dehydration as well as her electro light imbalances have resolved. I had multiple extensive discussion with the family about plan of care and whether or not they would like to meet with hospice. They met with hospice today and at the conclusion of the conversation felt that going inpatient hospice first for pain control and improvement of her nausea would be the most beneficial followed by going home with home hospice. 2. Her other medical diagnoses were evaluated in her home medications were continued where appropriate Patient Problems: Active and Suspected Problems (Last Reviewed 09/03/18 @ 18:54 by William Lal MD) Nausea & vomiting (Acute) Hypokalemia (Acute) Dehydration (Acute) - Physical Exam Vital Signs Temp Pulse Resp BP Pulse Ox 98.6 F 116 H 22 H 113/58 L 98 09/05/18 09:45 09/05/18 09:45 09/05/18 09:45 09/05/18 09:45 09/05/18 09:45 Oxygen Flow Rate (L/min) 2 Oxygen Delivery Method Room Air Weight: 119 lb 7.849 oz Body Mass Index (BMI) 20.4 Intake and Output for Last 24 Hours 09/03/18 09/04/18 09/05/18 23:59 23:59 23:59 Intake Total 447 / 447 4278 / 4278 1156 / 1156 Output Total 4732 / 4732 Balance 447 / 447 -454 / -454 1156 / 1156 Microbiology Past 72 Hours 09/04/18 11:16 Enteric Bacteriology - Final Stool 09/04/18 11:16 C. difficile DNA Amplification - Final Stool 09/04/18 07:18 Respiratory Panel (PCR) - Final Mucosa - Nasopharyngeal Laboratory Tests Past 24 Hrs 09/05/18 09/05/18 05:37 05:37 WBC 5.8 RBC 3.01 L Hgb 8.7 L Hct 27.2 L MCV 90.4 MCH 28.9 MCHC 32.0 RDW 16.7 H RDW Differential 55.1 H Plt Count 193 MPV 8.3 Immature Gran % (Auto) 0.200 Neut % (Auto) 75.7 H Lymph % (Auto) 11.2 L [place] % (Auto) 10.7 H Eos % (Auto) 2.2 Baso % (Auto) 0.0 Absolute Neuts (auto) 4.4 Absolute Lymphs (auto) 0.65 L Total Counted Not Reportable Sodium 138 Potassium 3.8 Chloride 110 H Carbon Dioxide 19.0 L Anion Gap 9 BUN 4 L Creatinine 0.32 L Estim Creat Clear Calc 155.97 Est GFR (MDRD) Af Amer 269 Est GFR (MDRD) Non-Af 223 BUN/Creatinine Ratio 12.5 Glucose 83 Calcium 7.6 L Home Medications: Medications to take at Discharge acetaminophen 500 mg tablet 500 mg PO Q4H PRN 08/16/18 apixaban 2.5 mg tablet 2.5 mg PO DAILY 08/16/18 levothyroxine 125 mcg tablet 250 mcg PO DAILY@0600 tab 08/16/18 prednisone 2.5 mg tablet 7.5 mg PO DAILY 08/16/18 Ondansetron [Zofran Odt] 8 mg PO Q6H PRN PRN 09/03/18 Senna [Senokot] 2 tablet PO DAILY 09/03/18 Ensure Clear 120 ml PO 4X/DAY liquid 09/05/18 Oxycodone [Oxyir] 7.5 mg PO Q4H PRN PRN tablet 09/05/18 Primary Care Physician: Jj Holliday MD [Primary Care Provider] - Disposition: Hospice Medical Facility Minutes spent on discharge:: 35 Patient Condition:: Stable Medical Necessity - Tobacco Use Smoking Status: Never smoker Meaningful Use Info Meaningful Use Diagnoses (Choose all that apply): None applicable Code Visit OBSV E&M: 91649 Observation care discharge
--- NOTE | 2018-09-05 16:17 | NURSING ---
Up to Bathroom with nurse's assistance. Then assisted to chair. Visiting with family while sitting in chair.
[2018-09-05] MEDS: Metoclopramide 10 MG Tablet PO (18:03)
[2018-09-05 18:26] VITALS: BP 110/67; PULSE 115; RESP 20; TEMP 37.2; O2SAT 96
--- NOTE | 2018-09-05 18:40 | NURSING ---
Report given to Annie VARELA at the Inpt Unit of Hospice. This nurse Right chest port accessed for Hospice. Waiting on transport to come pick pt up.
== END 2018-09-05 19:21 | disposition hospice, inpatient (51) ==
LOC: ED 16:51 → MS3 19:39
PROVIDERS: Internal Medicine; Admitting Provider Internal Medicine; Emergency Provider Emergency Medicine; Family Provider Internal Medicine; PCP Internal Medicine; Referring Provider Internal Medicine; Visit Provider Family Medicine
DX: E86.0 Dehydration (principal); R11.2 Nausea with vomiting, unspecified; E87.6 Hypokalemia; E87.1 Hypo-osmolality and hyponatremia; K59.09 Other constipation; Z92.3 Personal history of irradiation; Z79.899 Other long term (current) drug therapy; Z79.01 Long term (current) use of anticoagulants; C18.9 Malignant neoplasm of colon, unspecified; C78.00 Secondary malignant neoplasm of unspecified lung; C79.51 Secondary malignant neoplasm of bone; C77.9 Secondary and unspecified malignant neoplasm of lymph node, unspecified; Z79.52 Long term (current) use of systemic steroids; E03.9 Hypothyroidism, unspecified
CPT/HCPCS: 36591; 70470; 71275; 74177; 80048; 80053; 80076; 81001; 83605; 83690; 83735; 84100; 84484; 85025; 85610; 85730; 87040; 87086; 87088; 87493; 87506; 87633; 93005; 96361; 96365; 96366; 96375; 96376; 97802; 99218; 99251; 99284; J7030; Q9967; A4216; G0378; G0463; J2405